=== PATIENT | female | born 1935 | race Caucasian/White ===

== ENCOUNTER 2016-06-28 22:29 | Observation (INO) ==
--- NOTE | 2016-06-28 23:39 | Emergency Department Note ---
Disposition Clinical Impression: Unable to ambulate Fracture of 5th metatarsal Qualifiers: Encounter type: initial encounter Fracture type: closed Fracture alignment: nondisplaced Laterality: right Qualified Code(s): S92.354A - Nondisplaced fracture of fifth metatarsal bone, right foot, initial encounter for closed fracture Disposition: Admitted As Inpatient Condition: Good Referrals: Unassigned,Provider [Non-Partnered Physician] - Forms: ED Satisfaction Letter Time of Disposition: 04:13 Fall HPI - General Chief Complaint: ED Fall Stated Complaint: Fall, R ankle/Shoulder Pain Time Seen by Provider: 06/28/16 23:37 Source: patient, family Nursing Notes Reviewed: Yes Vital Signs Reviewed: Yes - History of Present Illness HPI Narrative: Patient is an 81-year-old female with hx of dementia who presented today due to a fall. Patient is a poor historian due to Alzheimer's. Patient was at home, walking in her garage without lights on. Family states that the garage floor has a divot in it. She stepped in the divot with her right ankle, fell onto her right ankle, right shoulder. She is unsure if she hit her head or cervical spine. She does not recall whether or not she lost consciousness. She is complaining of right shoulder pain, right ankle pain, mild neck pain. Denies any chest pain, shortness breath, nausea, vomiting, fevers, abdominal pain, any other injuries. - Related Data Home Medications Medication Instructions Recorded Confirmed Aripiprazole [Abilify] 5 mg PO DAILY 10/02/15 10/30/15 Aspirin [Lo-Dose Aspirin EC] 81 mg PO DAILY 10/02/15 10/30/15 Atorvastatin Calcium [Lipitor] 80 mg PO DAILY 10/02/15 10/30/15 Clopidogrel [Plavix] 75 mg PO DAILY 10/02/15 10/30/15 Donepezil [Aricept] 10 mg PO HS 10/02/15 10/30/15 Ergocalciferol (VITAMIN D2) 50,000 unit PO QWEEK 10/02/15 10/30/15 [Vitamin D2 (50,000 UNIT)] Ferrous Sulfate [Iron] 325 mg PO DAILY 10/02/15 10/30/15 Lisinopril [Zestril] 2.5 mg PO DAILY 10/02/15 10/30/15 Memantine HCl [Namenda Xr] 28 mg PO DAILY 10/02/15 10/30/15 Metformin [Glucophage] 500 mg PO BIDWM 10/02/15 10/30/15 Metoprolol XL (24 HR) Succ [Toprol 25 mg PO DAILY 10/02/15 10/30/15 XL] Nitroglycerin [Nitrostat] 0.4 mg SL PRN PRN 10/02/15 10/30/15 Omeprazole [PriLOSEC] 20 mg PO DAILY 10/02/15 10/30/15 Sertraline [Zoloft] 150 mg PO DAILY 10/02/15 10/30/15 Allergies Allergy/AdvReac Type Severity Reaction Status Date / Time Sulfa (Sulfonamide Allergy Rash Verified 06/28/16 23:54 Antibiotics) All systems ED: reviewed and negative except as stated. Constitutional: Denies: fever Cardiovascular: Denies: chest pain, palpitations Respiratory: Denies: dyspnea Gastrointestinal: Denies: abdominal pain, nausea, vomiting, diarrhea Musculoskeletal: Reports: neck pain. Denies: back pain Integumentary: Denies: rash Neurological: Denies: headache, weakness, numbness, paresthesias Fall PMH - Past Medical History Medical history: Reports: coronary artery disease, dementia, diabetes, GERD, hyperlipidemia, hypertension, migraine, myocardial infarction, other - Social History Smoking Status: Former smoker Alcohol use: Reports: none Drug use: Reports: none Physical Exam - General Limitations: no limitations General appearance: alert, in no apparent distress - Head Head exam: atraumatic, normocephalic, normal inspection - Eye Eye exam: Present: normal appearance, PERRL, EOMI - ENT ENT exam: normal exam, mucous membranes moist - Neck Neck exam: Present: normal inspection, full ROM, trachea midline, tenderness ( Cervical spine tenderness C4-C6. No paraspinal tenderness. ) - Chest Chest inspection: Present: normal inspection, symmetric chest wall rise - Respiratory Respiratory exam: Present: normal lung sounds bilaterally - Cardiovascular Cardiovascular exam: Present: regular rate, normal rhythm, normal heart sounds - Abdominal Exam Abdominal exam: Present: soft, Non-Tender. Absent: tenderness, distention, guarding, rebound, rigidity - Extremities Exam Extremities exam: Present: other (Edema and tenderness of the lateral right malleolus, tenderness and edema of metatarsals 2 through 5 of the right foot. Patient has tenderness of the right proximal humerus and anterior right shoulder with no palpable deformity.) Course Course Narrative: Vitals within normal limits. Physical exam shows C4-C6 spinous process tenderness. Edema and tenderness of the lateral right malleolus, tenderness and edema of metatarsals 2 through 5 of the right foot. Patient has tenderness of the right proximal humerus and anterior right shoulder with no palpable deformity. Due to patient being a poor historian, it is unclear whether or not she hit her head or loss consciousness. Her head exam is atraumatic. We will obtain CT of the head, CT cervical spine, x-ray of the right humerus and right shoulder, x-ray of the right foot and right ankle. Family was very adamant about the patient receiving a pain shot instead of a pain pill. Patient was given fentanyl 50 mg for pain control. Xrays negative except for:1. Acute fracture through the base of the 5th metacarpal, extending through the metadiaphysis, approximately 1.8 cm from the tuberosity. Patient placed in posterior splint by bob Kwong. Neurovascularly intact after placement. Patient givne additional dilaudid 0.5mg for pain control. Patient unable to ambulate, family and patient wish to be admitted and have ortho see in hospital tomorrow. This was discussed with hospitalist. Patient accepted for admission and they will consult ortho tomorrow for further care. Ankle X-Ray 06/29/16 00:00 IMPRESSION: 1. Acute fracture through the base of the 5th metacarpal, extending through the metadiaphysis, approximately 1.8 cm from the tuberosity. 2. Diffuse bony demineralization. D/ / Nino Pedersen MD / Nino Pedersen MD Interpreting Provider: Nino Pedersen MD Foot X-Ray 06/29/16 00:00 IMPRESSION: 1. Acute fracture of the base of the 5th metatarsal metadiaphysis, approximately 2 cm from the tuberosity D/ / iNno Pedersen MD / Nino Pedersen MD Interpreting Provider: Nino Pedersen MD Humerus X-Ray 06/29/16 00:00 IMPRESSION: 1. Moderate acromioclavicular and mild to moderate glenohumeral degenerative changes. No superimposed acute radiographic finding to account for patient's pain. D/ / Hayden Campoverde MD / Hayden Campoverde MD Interpreting Provider: Hayden Campoverde MD Shoulder X-Ray 06/29/16 00:00 IMPRESSION: 1. Moderate acromioclavicular and mild to moderate glenohumeral degenerative changes. No superimposed acute radiographic finding to account for patient's pain. D/ / Hayden Campoverde MD / Hayden Campoverde MD Interpreting Provider: Hayden Campoverde MD Elbow X-Ray 06/29/16 01:16 IMPRESSION: No acute osseous abnormality. D/ / Nino Pedersen MD / Nino Pedersen MD Interpreting Provider: Nino Pedersen MD Cervical Spine CT 06/29/16 23:55 IMPRESSION: Slightly limited study due to motion degradation. Otherwise no acute fracture or subluxation of the cervical spine. Moderate multilevel cervical spine spondylosis. D/ / Nino Pedersen MD / Nino Pedersen MD Interpreting Provider: Nino Pedersen MD Head CT 06/29/16 23:55 IMPRESSION: No acute intracranial abnormality. D/ / Nino Pedersen MD / Nino Pedersen MD Interpreting Provider: Nino Pedersen MD Vital Signs Temperature 98.1 F 06/28/16 22:31 Pulse Rate 66 06/28/16 22:31 Respiratory Rate 16 06/28/16 22:31 Blood Pressure 167/79 06/28/16 22:31 O2 Sat by Pulse Oximetry 94 06/28/16 22:31 Temperature 98.1 F 06/28/16 22:31 Pulse Rate 59 06/29/16 03:30 Respiratory Rate 20 06/29/16 03:30 Blood Pressure 157/69 06/29/16 03:30 O2 Sat by Pulse Oximetry 95 06/29/16 03:30 Oxygen Delivery Oxygen Delivery Room Air Procedures - Orthopedic Splinting/Casting Injury #1 Side: right Lower Extremity Injury Location: foot Lower Extremity Immobilizer: posterior splint Additional Comments: Placed by [employer]. Neurovascularly intact after placement. Fall - MDM Narrative Medical decision making narrative: Vitals within normal limits. Physical exam shows C4-C6 spinous process tenderness. Edema and tenderness of the lateral right malleolus, tenderness and edema of metatarsals 2 through 5 of the right foot. Patient has tenderness of the right proximal humerus and anterior right shoulder with no palpable deformity. Due to patient being a poor historian, it is unclear whether or not she hit her head or loss consciousness. Her head exam is atraumatic. We will obtain CT of the head, CT cervical spine, x-ray of the right humerus and right shoulder, x-ray of the right foot and right ankle. Family was very adamant about the patient receiving a pain shot instead of a pain pill. Patient was given fentanyl 50 mg for pain control. Xrays negative except for:1. Acute fracture through the base of the 5th metacarpal, extending through the metadiaphysis, approximately 1.8 cm from the tuberosity. Patient placed in posterior splint by tech Elenita. Neurovascularly intact after placement. Patient givne additional dilaudid 0.5mg for pain control. Patient unable to ambulate, family and patient wish to be admitted and have ortho see in hospital tomorrow. This was discussed with hospitalist. Patient accepted for admission and they will consult ortho tomorrow for further care. - Medical Records Medical records reviewed: Yes I reviewed the patient's medical records. - Radiology Data Radiology results reviewed: Yes I reviewed the patient's radiology results. Ankle X-Ray 06/29/16 00:00 IMPRESSION: 1. Acute fracture through the base of the 5th metacarpal, extending through the metadiaphysis, approximately 1.8 cm from the tuberosity. 2. Diffuse bony demineralization. D/ / Nino Pedersen MD / Nino Pedersen MD Interpreting Provider: Nino Pedersen MD Foot X-Ray 06/29/16 00:00 IMPRESSION: 1. Acute fracture of the base of the 5th metatarsal metadiaphysis, approximately 2 cm from the tuberosity D/ / Nino Pedersen MD / Nino Pedersen MD Interpreting Provider: Nino Pedersen MD Humerus X-Ray 06/29/16 00:00 IMPRESSION: 1. Moderate acromioclavicular and mild to moderate glenohumeral degenerative changes. No superimposed acute radiographic finding to account for patient's pain. D/ / Hayden Campoverde MD / Hayden Campoverde MD Interpreting Provider: Hayden Campoverde MD Shoulder X-Ray 06/29/16 00:00 IMPRESSION: 1. Moderate acromioclavicular and mild to moderate glenohumeral degenerative changes. No superimposed acute radiographic finding to account for patient's pain. D/ / Hayden Campoverde MD / Hayden Campoverde MD Interpreting Provider: Hayden Campoverde MD Elbow X-Ray 06/29/16 01:16 IMPRESSION: No acute osseous abnormality. D/ / Nino Pedersen MD / Nion Pedersen MD Interpreting Provider: Nino Pedersen MD Cervical Spine CT 06/29/16 23:55 IMPRESSION: Slightly limited study due to motion degradation. Otherwise no acute fracture or subluxation of the cervical spine. Moderate multilevel cervical spine spondylosis. D/ / Nino Pedersen MD / Nino Pedersen MD Interpreting Provider: Nino Pedersen MD Head CT 06/29/16 23:55 IMPRESSION: No acute intracranial abnormality. D/ / Nino Pedersen MD / Nino Pedersen MD Interpreting Provider: Nino Pedersen MD [email or web address] - [email or web address] Situation: Demographics, MOA Background: Presenting Complaint, Relevant PMH, Meds, & Allergies Assessment: Vital Signs, Course and respsone to treatment, Exam Concerns, Patient/Family Expectation, Pertinant Lab Results, Outstanding Labs Recommendation: Barrier(s) to disposition, Recommendation based on pending studies, treatments, or consults [email or web address] Report Given to: Dr. Jim Rivera Repor Time: 04:14 Attestation Statement - Attestation Attestation: I examined this patient and my medical decision-making was reviewed with the TEXTILE B[employer] SEWER/PA/Advanced Practice Nurse/Resident Physician. I agree with the documented findings, disposition and treatment plan as described except to the extent set forth below. Patient to ED after a fall. Patient had an unwitnessed fall in the garage. Unsure if she hit her head. She is complaining of right shoulder and right ankle pain. Neck pain as well. On examination she has a moderate amount of swelling to the right ankle with tenderness over the lateral malleolus. Also tenderness over the lateral portion of the foot. Tenderness over the spine inferiorly. Tenderness in the right shoulder with decreased range of motion. Plan. Pain control and imaging. We will CT her head as well. She will with metatarsal fracture. Unable to ambulate. We will admit for orthopedics consult and rehabilitation placement if unable to go home.
[2016-06-28] MEDS ORDERED: *HR* FentaNYL (PF) 100 MCG/2 ML VIAL IVP ONE (23:56)
[2016-06-29] MEDS ORDERED: *HR* HYDROmorphone (PF) 1 MG/ML SYRINGE IVP ONE (03:15)
[2016-06-29] MEDS ORDERED: *HR* Morphine 2 MG/ML SYRINGE IVP PRN (03:59)
[2016-06-29] MEDS ORDERED: Ibuprofen 400 MG TABLET PO PRN (03:59)
[2016-06-29] MEDS ORDERED: Ondansetron 4 MG/2 ML VIAL IVP PRN (03:59)
[2016-06-29] MEDS ORDERED: Acetaminophen 325 MG TABLET PO PRN (03:59)
[2016-06-29] MEDS ORDERED: Naloxone 0.4 MG/ML INJ IVP PRN (03:59)
[2016-06-29] MEDS ORDERED: 0.9 % Sodium Chloride 1,000 ML IVC SCH (04:00)
--- NOTE | 2016-06-29 04:09 | Internal Med History&Physical ---
Date of Encounter: 06/29/16 Time of Encounter: 04:06 Assessment and Plan (1) Nondisplaced fracture of fifth right metatarsal bone Current visit: Yes Status: Acute maintain splint until evaluation by orthopedic surgery PT OT eval morphine for pain admitted for observation Omeprazole for Gi prophylaxis and sub q heparin for dvt prophylaxis. Full code. TIme spent: 40 min . High risk of falling Qualifiers: Encounter type: initial encounter Fracture type: closed Qualified Code(s) : S92.354A - Nondisplaced fracture of fifth metatarsal bone, right foot, initial encounter for closed fracture (2) Fall Current visit: Yes Status: Acute check orthostatics fall precautions check UA CBC and BMP Qualifiers: Encounter type: initial encounter Qualified Code(s): W19.XXXA - Unspecified fall, initial encounter (3) DM2 (diabetes mellitus, type 2) Current visit: Yes Status: Acute ISS Qualifiers: Diabetes mellitus complication status: without complication Diabetes mellitus penitentiary insulin use: without penitentiary use Qualified Code(s): E11.9 - Type 2 diabetes mellitus without complications (4) Accelerated hypertension Current visit: Yes Status: Acute may use hydralazine PRN (5) Confusion Current visit: Yes Status: Acute consider possible acute metabolic encephalopathy in the setting of underlying dementia check UA (6) GERD (gastroesophageal reflux disease) Current visit: Yes Status: Acute omeprazole Qualifiers: Esophagitis presence: without esophagitis Qualified Code(s): K21.9 - Gastro -esophageal reflux disease without esophagitis (7) Dementia Current visit: No Status: Chronic Qualifiers: Dementia type: Alzheimer's disease Alzheimer's disease onset: unspecified onset Dementia behavioral disturbance: without behavioral disturbance Qualified Code(s): G30.9 - Alzheimer's disease, unspecified; F02.80 - Dementia in other diseases classified elsewhere without behavioral disturbance Internal Medicine - H&P: HPI Chief complaint: fall Admitted From: Emergency Dept History of present illness: Ms. Santana is a 81 year old female with a past medical history of Alzheimer' s dementia, diabetes type 2 not insulin-dependent, hyperlipidemia, CAD status post stents, came to the hospital after sustaining a fall. She has. Apparently she was at home and walked into the garage without any lights, tripped and fell on her right side. Did not remember hitting her head. CT scan of the head and neck did not show any fractures. X-ray of the right foot showed base fifth metatarsal mid to 2 cm nondisplaced fracture, patient is having excruciating pain and is not able to stand up and bear any weight. Blood pressure is 164/69. Her daughters say that she has been more confused for the past week. No labs have been drawn by the ER, no UA collected. ER physician Dr Li requested admission. Past Med Surg Social Fam HX - Past Medical History Medical history: coronary artery disease (hx of stent), dementia, diabetes (Not insulin-dependent), GERD, hyperlipidemia, hypertension, migraine, myocardial infarction, other (Alzheimer's dementia, osteoarthritis, diastolic CHF, migraines, depression) - Past Surgical History Surgical History: other (Cardiac catheterization, hysterectomy. Prior ejection fraction of 65% with mild diastolic dysfunction) - Social History Smoking Status: Former smoker Smokeless Tobacco Status: No Alcohol use: none Drug use: none - Additional Family History Additional family history: Father with Alzheimer's, sister with diabetes and mother with MA and diabetes Internal Medicine - H&P: Meds Aripiprazole [Abilify] 5 mg PO DAILY 10/02/15 [History] Aspirin [Lo-Dose Aspirin EC] 81 mg PO DAILY 10/02/15 [History] Atorvastatin Calcium [Lipitor] 80 mg PO DAILY 10/02/15 [History] Clopidogrel [Plavix] 75 mg PO DAILY 10/02/15 [History] Donepezil [Aricept] 10 mg PO HS 10/02/15 [History] Ergocalciferol (VITAMIN D2) [Vitamin D2 (50,000 UNIT)] 50,000 unit PO QWEEK [History] Ferrous Sulfate [Iron] 325 mg PO DAILY 10/02/15 [History] Lisinopril [Zestril] 2.5 mg PO DAILY 10/02/15 [History] Memantine HCl [Namenda Xr] 28 mg PO DAILY 10/02/15 [History] Metformin [Glucophage] 500 mg PO BIDWM 10/02/15 [History] Metoprolol XL (24 HR) Succ [Toprol XL] 25 mg PO DAILY 10/02/15 [History] Nitroglycerin [Nitrostat] 0.4 mg SL PRN PRN 10/02/15 [History] Omeprazole [PriLOSEC] 20 mg PO DAILY 10/02/15 [History] Sertraline [Zoloft] 150 mg PO DAILY 10/02/15 [History] Allergies Sulfa (Sulfonamide Antibiotics) Allergy (Verified 06/28/16 23:54) Rash All Systems PM: A 10-system review of systems was performed and is negative for pertinent findings except as documented above in the HPI. Review of systems: The patient is a very poor historian, unable to complete ROS. Denies CP or SOB , no dizziness, no dysuria. Information provided by the patient is probably not reliable - Constitutional Vitals: Temp Pulse Resp BP Pulse Ox 98.1 F 59 20 157/69 95 06/28/16 22:31 06/29/16 03:30 06/29/16 03:30 06/29/16 03:30 06/29/16 03:30 General appearance: Present: A&O X 1 - Head Head exam: Present: atraumatic, normocephalic - Eye Eye exam: Present: PERRL, conjuntiva pink, sclera anicteric Pupils: Present: PERRL - Neck Neck exam general surgery: Present: supple, trachea midline. Absent: lymphadenopathy - Respiratory Respiratory exam: Present: decreased breath sounds, CTAB. Absent: accessory muscle use, rales, rhonchi, wheezes - Cardiovascular Cardiovascular exam: Present: RRR, +S1, +S2. Absent: diastolic murmur, gallop, rubs, systolic murmur - GI/Abdominal GI/Abdominal exam: Present: normal bowel sounds, soft, no peritoneal signs. Absent: distended, tenderness - Extremities Exam Extremities exam: Present: warm, radial pulses palpable and symetrical. Absent : calf tenderness, cyanotic, pedal edema - Neurological Exam Neurological exam: Present: CN II-XII intact, no focal deficits. Absent: oriented X3, pronater drift, facial droop, speech deficit - Skin Skin exam: Present: dry, intact Additional comments: splint placed on right foot, no hematoma, moderate ankle swelling , no erythema small abrassion on left elbow Internal Med - H&P Results - Impressions ITS Impressions Ankle X-Ray 06/29/16 00:00 IMPRESSION: 1. Acute fracture through the base of the 5th metacarpal, extending through the metadiaphysis, approximately 1.8 cm from the tuberosity. 2. Diffuse bony demineralization. D/ / Nino Pedersen MD / Nino Pedersen MD Interpreting Provider: Nino Pedersen MD Foot X-Ray 06/29/16 00:00 IMPRESSION: 1. Acute fracture of the base of the 5th metatarsal metadiaphysis, approximately 2 cm from the tuberosity D/ / Nino Pedersen MD / Nino Pedersen MD Interpreting Provider: Nino Pedersen MD Humerus X-Ray 06/29/16 00:00 IMPRESSION: 1. Moderate acromioclavicular and mild to moderate glenohumeral degenerative changes. No superimposed acute radiographic finding to account for patient's pain. D/ / Hayden Campoverde MD / Hayden Campoverde MD Interpreting Provider: Hayden Campoverde MD Shoulder X-Ray 06/29/16 00:00 IMPRESSION: 1. Moderate acromioclavicular and mild to moderate glenohumeral degenerative changes. No superimposed acute radiographic finding to account for patient's pain. D/ / Hayden Campoverde MD / Hayden Campoverde MD Interpreting Provider: Hayden Campoverde MD Elbow X-Ray 06/29/16 01:16 IMPRESSION: No acute osseous abnormality. D/ / Nino Pedersen MD / Nino Pedersen MD Interpreting Provider: Nino Pedersen MD Cervical Spine CT 06/29/16 23:55 IMPRESSION: Slightly limited study due to motion degradation. Otherwise no acute fracture or subluxation of the cervical spine. Moderate multilevel cervical spine spondylosis. D/ / Nino Pedersen MD / Nino Pedersen MD Interpreting Provider: Nino Pedersen MD Head CT 06/29/16 23:55 IMPRESSION: No acute intracranial abnormality. D/ / Nino Pedersen MD / Nino Pedersen MD Interpreting Provider: Nino Pedersen MD
[2016-06-29] MEDS: *HR* Heparin 5,000 UNIT/ML VIAL SQ SCH ×3 (05:54→21:29)
[2016-06-29 06:39] LABS: BUN/Creatinine Ratio 25 (6-26); Basophils % 0.3 %; Blood Urea Nitrogen 19 mg/dL (7-20); Calcium 8.8 mg/dL (8.6-10.8); Carbon Dioxide 23 mEq/L (19-29); Chloride 107 mEq/L (98-109); Eosinophils # 0.3 K/mcL (0.0-0.6); Glucose 204 mg/dL (70-99); Hematocrit 34.2 % (35.3-44.9); Hemoglobin 10.9 g/dL (11.5-15.4); Immature Granulocytes % 0.3 % (0-4); Lymphocytes # 0.9 K/mcL (0.6-4.6); Lymphocytes % 8.3 %; Mean Corpuscular HGB Conc 31.9 g/dL (31.6-35.5); Mean Corpuscular Hemoglobin 28.2 pg (28.0-33.3); Mean Corpuscular Volume 88.4 fL (83.0-100.0); Mean Platelet Volume 10.1 fL (9.4-12.4); Monocytes # 1.1 K/mcL (0.0-1.3); Neutrophils # 8.8 K/mcL (1.6-8.9); Osmolality,Calculated 300 (280-300); Platelet Count 199 K/mcL (140-400); Potassium 3.9 mEq/L (3.5-4.5); Red Blood Count 3.87 M/mcL (3.82-4.97); Red Cell Distribution Width 14.8 % (11.5-14.5); Segmented Neutrophils % 78.1 %; Sodium 141 mEq/L (136-145); eGFR For African Americans > 60 (> 60); eGFR For Non-African Americans > 60 (> 60)
[2016-06-29] MEDS ORDERED: Famotidine 20 MG TABLET PO SCH (07:30)
[2016-06-29] MEDS ORDERED: D5% in Water 1,000 ML IVC PRN (08:25)
[2016-06-29] MEDS ORDERED: Dextrose Gel 15 GM PO PRN ×2 (08:25)
[2016-06-29] MEDS ORDERED: *HR* Dextrose 50 % in Water (Syg) 50 ML SYRINGE IVP PRN (08:25)
[2016-06-29 09:25] LABS: Bilirubin,Urine Negative (Negative); Clarity,Urine Slightly Hazy (Clear); Color,Urine Yellow (Yellow); Glucose,Urine (UA) Normal (Normal)
[2016-06-29 09:26] LABS: Blood,Urine Negative (Negative); Ketones,Urine Negative (Negative); Leukocyte Esterase,Urine Moderate (Negative); Nitrite,Urine Negative (Negative); PH,Urine 6.5 pH Units (5.0-8.0); Protein,Urine Negative (Neg-Trace); Specific Gravity,Urine 1.022 (1.010-1.025); Urobilinogen,Urine Normal (Normal)
[2016-06-29 09:31] LABS: RBC,Urine 0-3 per hpf (0-3)
[2016-06-29 09:32] LABS: Squamous Epithelial Cell,Urine Few per lpf (None-Few); Uric Acid Crystals,Urine Present; Yeast,Urine Few per hpf (None Seen)
[2016-06-29 09:33] LABS: Bacteria,Urine Few per hpf (None-Few)
[2016-06-29] MEDS: ARIPiprazole 5 MG TABLET PO SCH (10:14)
[2016-06-29] MEDS: Aspirin Enteric Coated 81 MG Tablet PO SCH (10:14)
[2016-06-29] MEDS: Metoprolol XL (24 HR) Succ 25 MG TAB.ER.24H PO SCH (10:16)
[2016-06-29] MEDS: NAMENDA XR 28 MG PO SCH (10:19)
[2016-06-29] MEDS: Insulin LISPRO 300 UNITS/3 ML VIAL SQ SCH ×2 (12:12→17:32)
--- NOTE | 2016-06-29 13:03 | Podiatry Consult Note ---
Date of Encounter: 06/29/16 Time of Encounter: 13:01 Assessment and Plan (1) Nondisplaced fracture of fifth right metatarsal bone Current visit: Yes Status: Acute Assessment: #1 nondisplaced fracture fifth metatarsal right foot #2 comorbidities as outlined in history and recent positive urine cultures Plan: #1 remove splint of right foot to avoid skin compromise. #2 we will use adequate padding Marlon wrap's and flat Darco shoe #3 remove compression dressing at night and use heel protector boots and offload contralateral heel with pillow to avoid any pressure ulcers. #4 patient may bear weight with assistance in flat fracture shoe and compression dressing with assistance. #5 patient may be up in chair with leg elevated and may have bathroom privileges with assistance. #6 will follow up in podiatry clinic in 3 weeks post discharge Qualifiers: Encounter type: initial encounter Fracture type: closed Qualified Code(s) : S92.354A - Nondisplaced fracture of fifth metatarsal bone, right foot, initial encounter for closed fracture History of Present Illness Chief complaint: Fracture #5 metatarsal right HPI: Ms. Santana is a 81 year old female who fell at home within the last 24 hours. She was admitted through ED. Patient with positive urine culture. Subsequent fracture of #5 metatarsal. Review of x-rays revealed Wilkins fracture good alignment good position. Moderate edema noted. No other fracture or dislocation noted other lower extremities. Past Med Surg Social Fam HX - Past Medical History Medical history: coronary artery disease, dementia, diabetes, GERD, hyperlipidemia, hypertension, migraine, myocardial infarction, other - Past Surgical History Surgical History: other - Social History Smoking Status: Former smoker Smokeless Tobacco Status: No Alcohol use: none Drug use: none Medications and Allergies Aripiprazole [Abilify] 5 mg PO DAILY 10/02/15 [History] Aspirin [Lo-Dose Aspirin EC] 81 mg PO DAILY 10/02/15 [History] Atorvastatin Calcium [Lipitor] 80 mg PO DAILY 10/02/15 [History] Donepezil [Aricept] 10 mg PO HS 10/02/15 [History] Ergocalciferol (VITAMIN D2) [Vitamin D2 (50,000 UNIT)] 50,000 unit PO QWEEK [History] Ferrous Sulfate [Iron] 325 mg PO DAILY 10/02/15 [History] Lisinopril [Zestril] 5 mg PO DAILY 10/02/15 [History] Memantine HCl [Namenda Xr] 28 mg PO DAILY 10/02/15 [History] Metformin [Glucophage] 500 mg PO BIDWM 10/02/15 [History] Metoprolol XL (24 HR) Succ [Toprol XL] 25 mg PO DAILY 10/02/15 [History] Nitroglycerin [Nitrostat] 0.4 mg SL PRN PRN 10/02/15 [History] Omeprazole [PriLOSEC] 20 mg PO DAILY 10/02/15 [History] Sertraline [Zoloft] 150 mg PO DAILY 10/02/15 [History] Ascorbate Calcium [Vitamin C] 500 mg PO DAILY 06/29/16 [History] Isosorbide MONOnitrate (24 HR) [Imdur] 30 mg PO DAILY 06/29/16 [History] Allergies Sulfa (Sulfonamide Antibiotics) Allergy (Verified 06/28/16 23:54) Rash All Systems Reviewed: A 10-system review of systems was performed and is negative for pertinent findings except as documented above in the HPI. Physical Exam - Constitutional Vitals: Temp Pulse Resp BP Pulse Ox 98.8 F 64 18 116/71 94 06/29/16 11:11 06/29/16 11:11 06/29/16 11:11 06/29/16 11:11 06/29/16 11:11 General appearance: average body habitus, cooperative, no acute distress - Extremities Exam Extremities exam: Present: pedal edema, tenderness (On palpation of the right foot fifth metatarsal) - Expanded Lower Extremities Exam Foot/Toe exam: Present: tenderness at base of 5th metatarsal (Pain on palpation of the fifth metatarsal right foot) Neuro vascular tendon exam: Present: no vascular compromise Gait: Present: not tested/not observed - Neurological Exam Neurological exam: Present: oriented X3 (Intact epicritic sensation. Decreased proprioception. DTRs Achilles patellar equal and symmetrical. No spasticity no rigidity no flaccidity. Guarding of the right foot secondary to pain.) - Skin Skin exam: Present: normal color (Ecchymosis of the right foot consistent with fracture of the fifth metatarsal) - Vascular Capillary Refill: less than 3 seconds Results - Labs Result Diagrams: 06/29/16 05:27 06/29/16 05:27 Labs: Abnormal lab results WBC 11.3 K/mcL (4.3-11.1) H 06/29/16 05:27 Hgb 10.9 g/dL (11.5-15.4) L 06/29/16 05:27 Hct 34.2 % (35.3-44.9) L 06/29/16 05:27 RDW 14.8 % (11.5-14.5) H 06/29/16 05:27 Glucose 204 mg/dL (70-99) H 06/29/16 05:27 POC Glucose 183 (58-89) H 06/29/16 07:41 Ur Leukocyte Esterase Moderate (Negative) H 06/29/16 09:00 Urine Microscopic WBC 3-5 per hpf (0-3) H 06/29/16 09:00 Urine Yeast Few per hpf (None Seen) H 06/29/16 09:00 Ur Culture Indicated? YES (NO) A 06/29/16 09:00 H & H 06/29/16 Range/Units 05:27 Hgb 10.9 L (11.5-15.4) g/dL Hct 34.2 L (35.3-44.9) % All other labs normal. - Diagnostic results Ankle/Foot x-ray: image reviewed Consult Discharge Plan - Plan Referrals: Yovanny Parker MD [Primary Care Provider] -
[2016-06-29] MEDS ORDERED: Insulin LISPRO 300 UNITS/3 ML VIAL SQ SCH (21:00)
[2016-06-30] MEDS: *HR* Heparin 5,000 UNIT/ML VIAL SQ SCH (05:39)
[2016-06-30 06:08] LABS: Basophils % 0.2 %; Eosinophils # 0.2 K/mcL (0.0-0.6); Eosinophils % 3.5 %; Hematocrit 32.5 % (35.3-44.9); Hemoglobin 10.6 g/dL (11.5-15.4); Immature Granulocytes % 0.2 % (0-4); Lymphocytes # 0.8 K/mcL (0.6-4.6); Lymphocytes % 12.5 %; Mean Corpuscular HGB Conc 32.6 g/dL (31.6-35.5); Mean Corpuscular Hemoglobin 28.3 pg (28.0-33.3); Mean Corpuscular Volume 86.7 fL (83.0-100.0); Monocytes # 0.9 K/mcL (0.0-1.3); Monocytes % 13.4 %; Neutrophils # 4.7 K/mcL (1.6-8.9); Platelet Count 176 K/mcL (140-400); Red Blood Count 3.75 M/mcL (3.82-4.97); Red Cell Distribution Width 14.7 % (11.5-14.5); Segmented Neutrophils % 70.2 %
[2016-06-30 06:16] LABS: BUN/Creatinine Ratio 23 (6-26); Blood Urea Nitrogen 15 mg/dL (7-20); Calcium 8.6 mg/dL (8.6-10.8); Carbon Dioxide 23 mEq/L (19-29); Chloride 109 mEq/L (98-109); Glucose 141 mg/dL (70-99); Magnesium 1.8 mg/dL (1.6-2.6); Osmolality,Calculated 295 (280-300); Potassium 3.8 mEq/L (3.5-4.5); Sodium 141 mEq/L (136-145); eGFR For African Americans > 60 (> 60); eGFR For Non-African Americans > 60 (> 60)
[2016-06-30 07:28] VITALS: BP 120/70
[2016-06-30] MEDS: ARIPiprazole 5 MG TABLET PO SCH (08:20)
[2016-06-30] MEDS: Metoprolol XL (24 HR) Succ 25 MG TAB.ER.24H PO SCH (08:21)
[2016-06-30] MEDS: Insulin LISPRO 300 UNITS/3 ML VIAL SQ SCH (08:22)
[2016-06-30] MEDS: Aspirin Enteric Coated 81 MG Tablet PO SCH (08:22)
[2016-06-30] MEDS: NAMENDA XR 28 MG PO SCH (08:23)
[2016-06-30] MEDS ORDERED: Famotidine 20 MG TABLET PO SCH (09:00)
--- NOTE | 2016-06-30 09:03 | Discharge Summary ---
Date of Encounter: 06/30/16 Time of Encounter: 08:30 - Discharge Diagnosis (1) Fall Priority: Primary Status: Acute Qualifiers: Encounter type: initial encounter Qualified Code(s): W19.XXXA - Unspecified fall, initial encounter (2) Nondisplaced fracture of fifth right metatarsal bone Priority: Primary Status: Acute Qualifiers: Encounter type: initial encounter Fracture type: closed Qualified Code(s) : S92.354A - Nondisplaced fracture of fifth metatarsal bone, right foot, initial encounter for closed fracture (3) Accelerated hypertension Priority: Primary Status: Resolved (4) Dementia Priority: Secondary Status: Chronic Qualifiers: Dementia type: Alzheimer's disease Alzheimer's disease onset: unspecified onset Dementia behavioral disturbance: without behavioral disturbance Qualified Code(s): G30.9 - Alzheimer's disease, unspecified; F02.80 - Dementia in other diseases classified elsewhere without behavioral disturbance (5) DM2 (diabetes mellitus, type 2) Priority: Secondary Status: Chronic Qualifiers: Diabetes mellitus complication status: without complication Diabetes mellitus long-term insulin use: without long-term use Qualified Code(s): E11.9 - Type 2 diabetes mellitus without complications - Discharge Medications Prescriptions: Ibuprofen 400 mg PO Q6HR PRN #14 tablet PRN Reason: moderate to severe pain Home Medications: Aripiprazole [Abilify] 5 mg PO DAILY 10/02/15 [History] Aspirin [Lo-Dose Aspirin EC] 81 mg PO DAILY 10/02/15 [History] Atorvastatin Calcium [Lipitor] 80 mg PO DAILY 10/02/15 [History] Donepezil [Aricept] 10 mg PO HS 10/02/15 [History] Ergocalciferol (VITAMIN D2) [Vitamin D2 (50,000 UNIT)] 50,000 unit PO QWEEK [History] Ferrous Sulfate [Iron] 325 mg PO DAILY 10/02/15 [History] Memantine HCl [Namenda Xr] 28 mg PO DAILY 10/02/15 [History] Metformin [Glucophage] 500 mg PO BIDWM 10/02/15 [History] Metoprolol XL (24 HR) Succ [Toprol Xl] 25 mg PO DAILY 10/02/15 [History] Nitroglycerin [Nitrostat] 0.4 mg SL PRN PRN 10/02/15 [History] Omeprazole [PriLOSEC] 20 mg PO DAILY 10/02/15 [History] Sertraline [Zoloft] 150 mg PO DAILY 10/02/15 [History] Ascorbate Calcium [Vitamin C] 500 mg PO DAILY 06/29/16 [History] Clopidogrel [Plavix] 75 mg PO DAILY tablet 06/30/16 [Rx] Ibuprofen 400 mg PO Q6HR PRN #14 tablet 06/30/16 [Rx] Ibuprofen [Motrin] 400 mg PO Q6HR PRN #10 tablet 06/30/16 [Rx] Isosorbide MONOnitrate (24 HR) [Imdur] 15 mg PO DAILY #0 06/30/16 [Rx] Lisinopril [Zestril] 2.5 mg PO DAILY #0 06/30/16 [Rx] Allergies/Adverse Reactions: Allergies Sulfa (Sulfonamide Antibiotics) Allergy (Verified 06/28/16 23:54) Rash Date of admission: 06/29/16 04:19 Primary care physician: Yovanny Parker MD Consults: 06/29/16 05:19 Consult to Apparel Merchandiser [CONS] Routine Reason for SW Consult: age, [facility], future rehab 06/29/16 07:41 Consult to Podiatry [CONS] Routine Consulting Provider: Pod[facility] Reason for Consult: 5th toe MTP fracture Call Completed: Yes - Patient Status Disposition: Home, Self-Care Condition: Good Functional capacity at discharge: uses cane/walker Overall status at discharge: patient is progressing back to baseline - Discharge Instructions Follow Up With: Yovanny Parker MD [Primary Care Provider] - Additional Instructions: PLEASE FOLLOW UP IN THE PODIATRY CLINIC WITH DR VU IN 3 WEEKS. RIGHT FOOT CARE: - Marlon wrap's and flat Darco shoe. - remove compression dressing at night and use heel protector boots and offload contralateral heel with pillow to avoid any pressure ulcers - patient may bear weight with assistance in flat fracture shoe and compression dressing with assistance - patient may be up in chair with leg elevated and may have bathroom privileges with assistance - Diet and Activity Activity: other (AMBULATE WITH ASSISTANCE) Diet: diabetic diet, low fat, low cholesterol Interval History: Her daughter reports patient removed the bigger boot overnight but she was brought a smaller boot and she kept it. Hospital course: Ms. Santana is a 81 year old female with past medical history of ascites noted dementia, diabetes type 2, hyperlipidemia and CAD who presented after a mechanical fall at home. CT scan of the head and neck showed no acute process. X-ray of the right foot showed base fifth metatarsal mid to 2 cm nondisplaced fracture. In our ED, her right foot was placed in a splint. Dr Vu from Podiatry service was consulted. Patient's right foot was wrapped with MARLON wraps and placed in flat Darco shoe. PLAN: Follow-up in Dr. Vu's office in 3 weeks. Remove compression dressing at night and use heel protector boots and offload contralateral heel with pillow to avoid any pressure ulcers - patient may bear weight with assistance in flat fracture shoe and compression dressing with assistance - patient may be up in chair with leg elevated and may have bathroom privileges with assistance - Time Spent with Patient Total time spent providing and/or coordinating discharge services: - Constitutional Vitals: Temp Pulse Resp BP Pulse Ox 98.5 F 65 18 120/70 93 06/30/16 07:20 06/30/16 07:20 06/30/16 07:20 06/30/16 07:20 06/30/16 07:20 General appearance: Present: cooperative, A&O X 1, pleasant, no acute distress - Neck Neck exam general surgery: Absent: lymphadenopathy - Respiratory Respiratory exam: Present: CTAB - Cardiovascular Cardiovascular exam: Present: RRR - GI/Abdominal GI/Abdominal exam: Present: normal bowel sounds, soft. Absent: distended, tenderness - Extremities Exam Extremities exam: Present: pedal edema (Right foot in a boot) - Back Exam Back exam: Absent: CVA tenderness (L), CVA tenderness (R) - Neurological Exam Neurological exam: Present: alert, no focal deficits, strengths equal and symetr throughout. Absent: facial droop, speech deficit
== END 2016-06-30 10:20 | disposition home or self-care (01) ==
LOC: EMEROO 22:29 → 3ANU 22:29
PROVIDERS: ADMIT Internal Medicine; ATTEND Internal Medicine

== ENCOUNTER 2017-06-29 15:54 | Inpatient (IN) ==
--- NOTE | 2017-06-29 16:49 | Emergency Department Note ---
Disposition Clinical Impression: Anemia Disposition: Admitted As Inpatient Condition: Fair SOB HPI - General Chief Complaint: ED Shortness of Breath/Dyspnea Stated Complaint: "low hemoglobin 7.6" DIAN Time Seen by Provider: 06/29/17 16:05 Source: patient, family Mode of arrival: private vehicle Limitations: age Nursing Notes Reviewed: Yes Vital Signs Reviewed: Yes - History of Present Illness Pt Subjective Complaint: shortness of breath Onset (ago): month(s) Context: recent illness (Hx of Iron-deficiency anemia) Severity: moderate Consistency/Duration: constant Improves with: rest Worsens with: exertion, movement Known history of: congestive heart failure, other (Outpatient lab 7.6 on . Hypertension, DM, Hypercholerestemia, History of CAD on aspirin, [place]) Associated symptoms: Reports: denies other symptoms. Denies: chest pain, fever , wheezing, syncope Treatment prior to arrival: none Cough present: No Cough Description: None Sputum production: No Sputum Amount: None - Related Data Comment: CBC 10/03/15 - microcytic anemia, Hgb 10.7. Home oxygen amount: none Home Medications Medication Instructions Recorded Confirmed Aripiprazole [Abilify] 5 mg PO DAILY 10/02/15 06/29/16 Aspirin [Lo-Dose Aspirin EC] 81 mg PO DAILY 10/02/15 06/29/16 Atorvastatin Calcium [Lipitor] 80 mg PO DAILY 10/02/15 06/29/16 Donepezil [Aricept] 10 mg PO HS 10/02/15 06/29/16 Ergocalciferol (VITAMIN D2) 50,000 unit PO QWEEK 10/02/15 06/29/16 [Vitamin D2 (50,000 UNIT)] Ferrous Sulfate [Iron] 325 mg PO DAILY 10/02/15 06/29/16 Memantine HCl [Namenda Xr] 28 mg PO DAILY 10/02/15 06/29/16 Metoprolol XL (24 HR) Succ [Toprol 25 mg PO DAILY 10/02/15 06/29/16 Xl] Nitroglycerin [Nitrostat] 0.4 mg SL PRN PRN 10/02/15 06/29/16 Omeprazole [PriLOSEC] 20 mg PO DAILY 10/02/15 06/29/16 Sertraline [Zoloft] 150 mg PO DAILY 10/02/15 06/29/16 metFORMIN [Glucophage] 500 mg PO BIDWM 10/02/15 06/29/16 Ascorbate Calcium [Vitamin C] 500 mg PO DAILY 06/29/16 06/29/16 Previous Rx's Medication Instructions Recorded Clopidogrel [Plavix] 75 mg PO DAILY tablet 06/30/16 Ibuprofen 400 mg PO Q6HR PRN #14 tablet 06/30/16 Ibuprofen [Motrin] 400 mg PO Q6HR PRN #10 tablet 06/30/16 Isosorbide MONOnitrate (24 HR) 15 mg PO DAILY #0 06/30/16 [Imdur] Lisinopril [Zestril] 2.5 mg PO DAILY #0 06/30/16 Amoxicillin 875 mg PO BID #20 tablet 07/07/16 Doxycycline 100 mg PO BID #20 capsule 07/07/16 Allergies Allergy/AdvReac Type Severity Reaction Status Date / Time Sulfa (Sulfonamide Allergy Rash Verified 06/28/16 23:54 Antibiotics) Review of Systems: ROS obtained by help of family. Constitutional: Denies: fever ENT ED: Reports: throat pain (intermittent ), other. Denies: dysphagia Cardiovascular: Denies: chest pain Respiratory: Reports: dyspnea. Denies: cough, hemoptysis Gastrointestinal: Reports: diarrhea (intermittent ), melena. Denies: abdominal pain, nausea, vomiting, hematochezia Genitourinary: Denies: urgency, dysuria, frequency Integumentary: Denies: rash Endocrine: Reports: fatigue Hematological/Lymphatic: Reports: easy bruising. Denies: easy bleeding Past Medical History - Past Medical History Source: obtained from family Medical history: Reports: CHF, dementia, hyperlipidemia, hypertension, myocardial infarction, other Surgical history: Reports: other Psychiatric history: Reports: anxiety, depression - Social History Smoking Status: Never smoker Smokeless Tobacco Status: No Alcohol use: Reports: none Drug use: Reports: none Physical Exam - General Limitations: age General appearance: in no apparent distress - Head Head exam: atraumatic, normocephalic - Chest Chest inspection: Present: symmetric chest wall rise. Absent: tenderness - Respiratory Respiratory exam: Present: other (bilateral crackles ) - Cardiovascular Cardiovascular exam: Present: regular rate, normal rhythm, +S1, +S2, other (No hepatojugular reflex.) - Abdominal Exam Abdominal exam: Present: soft, Non-Tender. Absent: distention, guarding, rebound - Rectal Exam Rectal exam: Present: normal rectal tone, heme (+) stool - Extremities Exam Extremities exam: Present: pedal edema (+1, non-pitting), other (No abrasions. Varicose veins. ) - Neurological Exam Neurological exam: Present: alert, other (oriented to person and place ) - Psychiatric Psychiatric exam: Present: normal mood Course - Reevaluation(s) Reevaluation #1: 17:32 - Dr. Soares at bedside evaluation pt. Reevaluation #2: 18:15 Rectal exam performed with vending machine attendant Ms. Cheema and daughter at bedside. Pt had no complaints. Hemeoccult developed, result reviewed with Dr. Soares, with resultant positive exam. Family notified of positive result. Patient and family agree and amenable to consideration for admission to hospital. Hospitalist subsequently paged. Reevaluation #3: 19:00 Pt appears comfortable. Hospitalist attending a resuscitation on inpatient side. Notified, family we are awaiting consultation. - Consultations Consultation #1: 20:20 - Hospitalist discussion - Dr. Puri at bedside. Agrees to admission. Vital Signs Temperature 98.3 F 06/29/17 16:03 Pulse Rate 69 06/29/17 16:03 Respiratory Rate 16 06/29/17 16:03 Blood Pressure 133/57 06/29/17 16:03 O2 Sat by Pulse Oximetry 100 06/29/17 16:03 Temperature 98.3 F 06/29/17 18:45 Pulse Rate 71 06/29/17 18:45 Respiratory Rate 16 06/29/17 18:45 Blood Pressure 128/68 06/29/17 18:45 O2 Sat by Pulse Oximetry 100 06/29/17 16:03 Oxygen Delivery Oxygen Delivery Room Air Shortness of Breath/Dyspnea - MDM Narrative Medical decision making narrative: 82-year-old female with a past medical history of dementia, CAD sp PCI proximal LAD 2014 with history of ischemic CM and normalized EF, CHF w/ EF 65% (2017), HTN, HLD, and iron-deficiency anemia in 2016, seen by Dr. Parker as an outpatient on 06/27/2017. Outpatient lab results with hemoglobin of 7.6. Was advised to present to the emergency department in the event of worsening symptomatic anemia given lab findings. Pt presented to the ED with family with complaint of SOB and fatigue. On exam, hemodynamically stable, positive hemeoccult, with rales b/l. CBC, renal function testing, T&S. CBC demonstrating hemoglobin of 7.5 with low MCV. 1 U pRBC ordered. CXR, ECG and troponin ordered. Iron panel pending. Pt and family amenable for consideration of admission at this time. - Medical Records Medical records reviewed: Yes I reviewed the patient's medical records. - Lab Data Lab results reviewed: Yes I reviewed the patient's lab results. Result diagrams: 06/29/17 16:42 06/29/17 16:42 Lab Results 06/29/17 06/29/17 06/29/17 Range/Units 16:42 16:42 16:42 WBC 9.5 (4.3-11.1) K/mcL RBC 3.75 L (3.82-4.97) M/mcL Hgb 7.5 L (11.5-15.4) g/dL Hct 26.2 L (35.3-44.9) % MCV 69.9 L (83.0-100.0) fL MCH 20.0 L (28.0-33.3) pg MCHC 28.6 L (31.6-35.5) g/dL RDW 16.1 H (11.5-14.5) % Plt Count 308 (140-400) K/mcL MPV 9.5 (9.4-12.4) fL Immature Gran % 0.3 (0-4) % Seg Neutrophils % 75.5 % Lymphocytes % 9.8 % Monocytes % 10.5 % Eosinophils % 3.6 % Basophils % 0.3 % Neutrophils # 7.2 (1.6-8.9) K/mcL Lymphocytes # 0.9 (0.6-4.6) K/mcL Monocytes # 1.0 (0.0-1.3) K/mcL Eosinophils # 0.3 (0.0-0.6) K/mcL Basophils # 0.0 (0.0-0.2) K/mcL Nucleated RBCs/100 WBC 0.3 H (0) /100 WBC Platelet Estimate Normal (Normal) Hypochromasia Present A (Not Present) Poikilocytosis 1+ A (Not Present) Anisocytosis 1+ A (Not Present) Microcytosis Present A (Not Present) PT 10.8 (9.4-12.1) Seconds INR 1.0 APTT 25.4 L (26.0-36.0) Seconds Sodium 139 (136-145) mEq/L Potassium 4.6 (3.5-5.1) mEq/L Chloride 108 H (98-107) mEq/L Carbon Dioxide 24 (23-29) mEq/L BUN 18 (8-23) mg/dL Creatinine 0.86 (0.60-1.20) mg/dL Est GFR ( Amer) > 60 (> 60) Est GFR (Non-Af Amer) > 60 (> 60) BUN/Creatinine Ratio 21 (6-26) Glucose 182 H (70-105) mg/dL Calculated Osmolality 295 (280-300) Calcium 9.0 (8.6-10.3) mg/dL Iron 83 (50-170) mcg/dL % Saturation 17 (15-50) % Transferrin 350 (203-362) mg/dL Troponin I (< 0.04) ng/mL Blood Type Antibody Screen Crossmatch 06/29/17 06/29/17 Range/Units 16:42 16:42 WBC (4.3-11.1) K/mcL RBC (3.82-4.97) M/mcL Hgb (11.5-15.4) g/dL Hct (35.3-44.9) % MCV (83.0-100.0) fL MCH (28.0-33.3) pg MCHC (31.6-35.5) g/dL RDW (11.5-14.5) % Plt Count (140-400) K/mcL MPV (9.4-12.4) fL Immature Gran % (0-4) % Seg Neutrophils % % Lymphocytes % % Monocytes % % Eosinophils % % Basophils % % Neutrophils # (1.6-8.9) K/mcL Lymphocytes # (0.6-4.6) K/mcL Monocytes # (0.0-1.3) K/mcL Eosinophils # (0.0-0.6) K/mcL Basophils # (0.0-0.2) K/mcL Nucleated RBCs/100 WBC (0) /100 WBC Platelet Estimate (Normal) Hypochromasia (Not Present) Poikilocytosis (Not Present) Anisocytosis (Not Present) Microcytosis (Not Present) PT (9.4-12.1) Seconds INR APTT (26.0-36.0) Seconds Sodium (136-145) mEq/L Potassium (3.5-5.1) mEq/L Chloride (98-107) mEq/L Carbon Dioxide (23-29) mEq/L BUN (8-23) mg/dL Creatinine (0.60-1.20) mg/dL Est GFR ( Amer) (> 60) Est GFR (Non-Af Amer) (> 60) BUN/Creatinine Ratio (6-26) Glucose (70-105) mg/dL Calculated Osmolality (280-300) Calcium (8.6-10.3) mg/dL Iron (50-170) mcg/dL % Saturation (15-50) % Transferrin (203-362) mg/dL Troponin I < 0.03 (< 0.04) ng/mL Blood Type O POSITIVE Antibody Screen NEGATIVE Crossmatch See Detail - Radiology Data Radiology results reviewed: Yes I reviewed the patient's radiology results. EXAMINATION: TWO VIEWS OF THE CHEST 06/29/2017 5:56 pm COMPARISON: 09/04/2014 HISTORY: ORDERING SYSTEM PROVIDED HISTORY: CHF Initial encounter acute illness. Difficulty breathing with low hemoglobin today. FINDINGS: The lungs are clear. The cardiac and mediastinal contours are stable. There is no pleural effusion or pneumothorax. No acute osseous abnormality is identified. There are mild degenerative changes in the thoracic spine. XR/XR chest 2V IMPRESSION: No acute cardiopulmonary abnormality. D/ / Kiel Lemus / Kiel Lemus Interpreting Provider: Kiel Lemus 05/23/17 EV/EV limited echocardiogram Impressions: LVEF 65%. Normal LV chamber size and function. Mild concentric left ventricular hypertrophy. Left Ventricular Wall Motion: Rest Echo Findings All wall segments showed normal motion. Findings: Study Quality * Technically adequate exam. ECG Findings * Normal sinus rhythm. Left Ventricle * LVEF 65%. * Normal LV chamber size and function. * Mild concentric left ventricular hypertrophy. Right Ventricle * Normal right ventricular structure and function. Left Atrium * Moderately dilated left atrium. Aorta * Normally sized aortic root. Pericardium * The pericardium appears normal. IVC * Normal IVC dimensions and inspiratory collapse. - EKG Data EKG attestation: Yes I reviewed and interpreted this EKG. EKG results narrative: 18:13:59. Sinus Rhythm. ST depression on ECG. Ventricular rate 68. NM interval 183 ms. QRS duration 82 ms. QT/QTc 365/382. Reviewed with attending.
[2017-06-29 16:51] LABS: Basophils % 0.3 %; Mean Platelet Volume 9.5 fL (9.4-12.4)
[2017-06-29 16:53] LABS: Eosinophils # 0.3 K/mcL (0.0-0.6); Eosinophils % 3.6 %; Hematocrit 26.2 % (35.3-44.9); Immature Granulocytes % 0.3 % (0-4); Lymphocytes # 0.9 K/mcL (0.6-4.6); Lymphocytes % 9.8 %; Mean Corpuscular HGB Conc 28.6 g/dL (31.6-35.5); Mean Corpuscular Volume 69.9 fL (83.0-100.0); Monocytes % 10.5 %; Neutrophils # 7.2 K/mcL (1.6-8.9); Nucleated Red Blood Cells 0.3 /100 WBC (0); Platelet Count 308 K/mcL (140-400); Red Blood Count 3.75 M/mcL (3.82-4.97); Red Cell Distribution Width 16.1 % (11.5-14.5); Segmented Neutrophils % 75.5 %
[2017-06-29 16:56] LABS: Prothrombin Time 10.8 Seconds (9.4-12.1)
[2017-06-29 16:59] LABS: Activated Partial Thrombo Time 25.4 Seconds (26.0-36.0); Hemoglobin 7.5 g/dL (11.5-15.4)
[2017-06-29 17:10] LABS: BUN/Creatinine Ratio 21 (6-26); Blood Urea Nitrogen 18 mg/dL (8-23); Carbon Dioxide 24 mEq/L (23-29); Chloride 108 mEq/L (98-107); Glucose 182 mg/dL (70-105); Osmolality,Calculated 295 (280-300); Potassium 4.6 mEq/L (3.5-5.1); Sodium 139 mEq/L (136-145); eGFR For African Americans > 60 (> 60); eGFR For Non-African Americans > 60 (> 60)
[2017-06-29 17:20] LABS: Anisocytosis 1+ (Not Present); Platelet Estimate Normal (Normal)
[2017-06-29 17:21] LABS: Hypochromasia Present (Not Present); Poikilocytosis 1+ (Not Present)
[2017-06-29 17:22] LABS: Microcytosis Present (Not Present)
[2017-06-29] MEDS ORDERED: Furosemide 20 MG/2 ML VIAL IV ONE (17:43)
[2017-06-29] MEDS ORDERED: 0.9 % Sodium Chloride 250 ML ONE (18:11)
[2017-06-29 19:06] LABS: % Iron Saturation 17 % (15-50); Iron 83 mcg/dL (50-170); Transferrin 350 mg/dL (203-362)
--- NOTE | 2017-06-29 20:47 | Internal Med History&Physical ---
Date of Encounter: 06/29/17 Time of Encounter: 20:44 Assessment and Plan (1) Symptomatic anemia Current visit: Yes Status: Acute Anemia due to GI bleed (2) GI bleed Current visit: Yes Status: Acute Regular likely upper GI bleed given melena will keep nothing by mouth after midnight consult GI for further evaluation Qualifiers: GI bleed type/associated pathology: melena Qualified Code(s): K92.1 - Melena (3) HTN (hypertension) Current visit: Yes Status: Chronic Chronic and well controlled Qualifiers: Hypertension type: essential hypertension Qualified Code(s): I10 - Essential (primary) hypertension (4) DM2 (diabetes mellitus, type 2) Current visit: No Status: Chronic Chronic we will resume home medication and place on sliding scale Qualifiers: Diabetes mellitus chcf insulin use: without terminal block assembler use Diabetes mellitus complication status: without complication Qualified Code(s): E11.9 - Type 2 diabetes mellitus without complications (5) Dementia Current visit: No Status: Chronic Chronic resume home medication Qualifiers: Dementia type: Alzheimer's disease Alzheimer's disease onset: unspecified onset Dementia behavioral disturbance: without behavioral disturbance Qualified Code(s): G30.9 - Alzheimer's disease, unspecified; F02.80 - Dementia in other diseases classified elsewhere without behavioral disturbance Internal Medicine - H&P: HPI Chief complaint: symptomatic anemia Admitted From: Emergency Dept Plans for Post Hospital Care: Home History of present illness: Ms. Santana is a 82 year old female Patient with history of dementia, congestive heart failure, high cholesterol, hypertension, CAD has a PTCA of LAD in the past, iron deficiency anemia and diabetes, patient had an outpatient lab drawn which came back hemoglobin is 7.6 and the patient was asked to come to the emergency room for further evaluation family has also noted black stool. Has had increased shortness of breath and fatigue In emergency room here hemoglobin was 7.5 with a low MCV . patient is hemodynamically stable but confused rectal exam in emergency room show heme positive stool patient will be admitted she is receiving blood in the emergency room and we will consult GI for further evaluation. be kept nothing by mouth after midnight Past Med Surg Social Fam HX - Past Medical History Medical history: CHF, dementia, hyperlipidemia, hypertension, myocardial infarction, other Psychiatric history: anxiety, depression - Past Surgical History Surgical History: other - Social History Smoking Status: Never smoker Smokeless Tobacco Status: No Alcohol use: none Drug use: none Internal Medicine - H&P: Meds Aripiprazole [Abilify] 5 mg PO DAILY 10/02/15 [History] Aspirin [Lo-Dose Aspirin EC] 81 mg PO DAILY 10/02/15 [History] Atorvastatin Calcium [Lipitor] 80 mg PO DAILY 10/02/15 [History] Donepezil [Aricept] 10 mg PO HS 10/02/15 [History] Ergocalciferol (VITAMIN D2) [Vitamin D2 (50,000 UNIT)] 50,000 unit PO QWEEK [History] Ferrous Sulfate [Iron] 325 mg PO DAILY 10/02/15 [History] Memantine HCl [Namenda Xr] 28 mg PO DAILY 10/02/15 [History] Metoprolol XL (24 HR) Succ [Toprol Xl] 25 mg PO DAILY 10/02/15 [History] Nitroglycerin [Nitrostat] 0.4 mg SL PRN PRN 10/02/15 [History] Omeprazole [PriLOSEC] 20 mg PO DAILY 10/02/15 [History] Sertraline [Zoloft] 150 mg PO DAILY 10/02/15 [History] metFORMIN [Glucophage] 500 mg PO BIDWM 10/02/15 [History] Ascorbate Calcium [Vitamin C] 500 mg PO DAILY 06/29/16 [History] Clopidogrel [Plavix] 75 mg PO DAILY tablet 06/30/16 [Rx] Ibuprofen 400 mg PO Q6HR PRN #14 tablet 06/30/16 [Rx] Ibuprofen [Motrin] 400 mg PO Q6HR PRN #10 tablet 06/30/16 [Rx] Isosorbide MONOnitrate (24 HR) [Imdur] 15 mg PO DAILY #0 06/30/16 [Rx] Lisinopril [Zestril] 2.5 mg PO DAILY #0 06/30/16 [Rx] Amoxicillin 875 mg PO BID #20 tablet 07/07/16 [Rx] Doxycycline 100 mg PO BID #20 capsule 07/07/16 [Rx] 3 Allergy/AdvReac Type Severity Reaction Status Date / Time Sulfa (Sulfonamide Allergy Rash Verified 06/28/16 23:54 Antibiotics) All Systems PM: A 10-system review of systems was performed and is negative for pertinent findings except as documented above in the HPI. - Constitutional Constitutional: fatigue, weakness - EENT Eyes: no change in vision, no discharge, no pain, no photophobia Ears: no ear discharge, no ear pain, no tinnitus Nose, mouth and throat: no dysphagia, no nasal discharge, no neck pain, no sore throat - Cardiovascular Cardiovascular ROS IM: dyspnea, dyspnea on exertion - Respiratory Respiratory: dyspnea on exertion - Gastrointestinal Gastrointestinal: melena - Genitourinary Genitourinary: no change in urinary stream, no dysuria, no flank pain, no hematuria - Musculoskeletal Musculoskeletal ROS IM: no numbness, no tingling - Neurological Neurological ROS: confusion, weakness - Constitutional Vitals: Temp Pulse Resp BP Pulse Ox 98.3 F 71 16 128/68 100 06/29/17 18:45 06/29/17 18:45 06/29/17 18:45 06/29/17 18:45 06/29/17 16:03 General appearance: Present: mild distress - Eye Eye exam: Present: PERRL, conjuntiva pink, sclera anicteric Pupils: Present: PERRL - Neck Neck exam general surgery: Present: supple, trachea midline. Absent: lymphadenopathy - Respiratory Respiratory exam: Present: rhonchi - Cardiovascular Cardiovascular exam: Present: RRR, +S1, +S2. Absent: diastolic murmur, gallop, rubs, systolic murmur - GI/Abdominal GI/Abdominal exam: Present: normal bowel sounds, soft, no peritoneal signs. Absent: distended, tenderness - Extremities Exam Extremities exam: Present: warm, radial pulses palpable and symmetrical. Absent : calf tenderness, cyanotic, pedal edema Internal Med - H&P Results - Labs CBC & Chem 7: 06/29/17 16:42 06/29/17 16:42
[2017-06-29] MEDS ORDERED: Acetaminophen 325 MG TABLET PO PRN (20:52)
[2017-06-29] MEDS ORDERED: Naloxone 0.4 MG/ML INJ IVP PRN (20:52)
--- NOTE | 2017-06-30 00:18 | Emergency Department Note ---
Disposition Clinical Impression: Anemia Disposition: Admitted As Inpatient Condition: Fair General Adult HPI - General Chief complaint: ED Shortness of Breath/Dyspnea Stated complaint: "low hemoglobin 7.6" DIAN Time Seen by Provider: 06/29/17 16:05 Source: patient, family Mode of arrival: private vehicle Limitations: age Nursing Notes Reviewed: Yes Vital Signs Reviewed: Yes - History of Present Illness Pain Scale: 0 - Related Data Home Medications Medication Instructions Recorded Confirmed Aripiprazole [Abilify] 5 mg PO DAILY 10/02/15 06/29/16 Aspirin [Lo-Dose Aspirin EC] 81 mg PO DAILY 10/02/15 06/29/16 Atorvastatin Calcium [Lipitor] 80 mg PO DAILY 10/02/15 06/29/16 Donepezil [Aricept] 10 mg PO HS 10/02/15 06/29/16 Ergocalciferol (VITAMIN D2) 50,000 unit PO QWEEK 10/02/15 06/29/16 [Vitamin D2 (50,000 UNIT)] Ferrous Sulfate [Iron] 325 mg PO DAILY 10/02/15 06/29/16 Memantine HCl [Namenda Xr] 28 mg PO DAILY 10/02/15 06/29/16 Metoprolol XL (24 HR) Succ [Toprol 25 mg PO DAILY 10/02/15 06/29/16 Xl] Nitroglycerin [Nitrostat] 0.4 mg SL PRN PRN 10/02/15 06/29/16 Omeprazole [PriLOSEC] 20 mg PO DAILY 10/02/15 06/29/16 Sertraline [Zoloft] 150 mg PO DAILY 10/02/15 06/29/16 metFORMIN [Glucophage] 500 mg PO BIDWM 10/02/15 06/29/16 Ascorbate Calcium [Vitamin C] 500 mg PO DAILY 06/29/16 06/29/16 Previous Rx's Medication Instructions Recorded Clopidogrel [Plavix] 75 mg PO DAILY tablet 06/30/16 Ibuprofen 400 mg PO Q6HR PRN #14 tablet 06/30/16 Ibuprofen [Motrin] 400 mg PO Q6HR PRN #10 tablet 06/30/16 Isosorbide MONOnitrate (24 HR) 15 mg PO DAILY #0 06/30/16 [Imdur] Lisinopril [Zestril] 2.5 mg PO DAILY #0 06/30/16 Amoxicillin 875 mg PO BID #20 tablet 07/07/16 Doxycycline 100 mg PO BID #20 capsule 07/07/16 Allergies Allergy/AdvReac Type Severity Reaction Status Date / Time Sulfa (Sulfonamide Allergy Rash Verified 06/28/16 23:54 Antibiotics) Constitutional: Denies: fever ENT ED: Reports: throat pain (intermittent ), other. Denies: dysphagia Cardiovascular: Denies: chest pain Respiratory: Reports: dyspnea. Denies: cough, hemoptysis Gastrointestinal: Reports: diarrhea (intermittent ), melena. Denies: abdominal pain, nausea, vomiting, hematochezia Genitourinary: Denies: urgency, dysuria, frequency Integumentary: Denies: rash Endocrine: Reports: fatigue Hematological/Lymphatic: Reports: easy bruising. Denies: easy bleeding Past Medical History - Past Medical History Medical history: Reports: CHF, dementia, diabetes, hyperlipidemia, hypertension , myocardial infarction, other Surgical history: Reports: angioplasty/stent, hysterectomy, other Psychiatric history: Reports: anxiety, depression - Social History Smoking Status: Never smoker Smokeless Tobacco Status: No Alcohol use: Reports: none Drug use: Reports: none Physical Exam - General Limitations: age General appearance: in no apparent distress Course Vital Signs Temperature 98.3 F 06/29/17 16:03 Pulse Rate 69 06/29/17 16:03 Respiratory Rate 16 06/29/17 16:03 Blood Pressure 133/57 06/29/17 16:03 O2 Sat by Pulse Oximetry 100 06/29/17 16:03 Temperature 99.4 F 06/29/17 23:52 Pulse Rate 80 06/29/17 23:52 Respiratory Rate 14 06/29/17 23:52 Blood Pressure 162/57 06/29/17 23:52 O2 Sat by Pulse Oximetry 93 06/29/17 23:52 Oxygen Delivery Oxygen Delivery Room Air Medical Decision Making - Lab Data Result diagrams: 06/29/17 16:42 06/29/17 16:42 Lab Results 06/29/17 06/29/17 06/29/17 Range/Units 16:42 16:42 16:42 WBC 9.5 (4.3-11.1) K/mcL RBC 3.75 L (3.82-4.97) M/mcL Hgb 7.5 L (11.5-15.4) g/dL Hct 26.2 L (35.3-44.9) % MCV 69.9 L (83.0-100.0) fL MCH 20.0 L (28.0-33.3) pg MCHC 28.6 L (31.6-35.5) g/dL RDW 16.1 H (11.5-14.5) % Plt Count 308 (140-400) K/mcL MPV 9.5 (9.4-12.4) fL Immature Gran % 0.3 (0-4) % Seg Neutrophils % 75.5 % Lymphocytes % 9.8 % Monocytes % 10.5 % Eosinophils % 3.6 % Basophils % 0.3 % Neutrophils # 7.2 (1.6-8.9) K/mcL Lymphocytes # 0.9 (0.6-4.6) K/mcL Monocytes # 1.0 (0.0-1.3) K/mcL Eosinophils # 0.3 (0.0-0.6) K/mcL Basophils # 0.0 (0.0-0.2) K/mcL Nucleated RBCs/100 WBC 0.3 H (0) /100 WBC Platelet Estimate Normal (Normal) Hypochromasia Present A (Not Present) Poikilocytosis 1+ A (Not Present) Anisocytosis 1+ A (Not Present) Microcytosis Present A (Not Present) PT 10.8 (9.4-12.1) Seconds INR 1.0 APTT 25.4 L (26.0-36.0) Seconds Sodium 139 (136-145) mEq/L Potassium 4.6 (3.5-5.1) mEq/L Chloride 108 H (98-107) mEq/L Carbon Dioxide 24 (23-29) mEq/L BUN 18 (8-23) mg/dL Creatinine 0.86 (0.60-1.20) mg/dL Est GFR ( Amer) > 60 (> 60) Est GFR (Non-Af Amer) > 60 (> 60) BUN/Creatinine Ratio 21 (6-26) Glucose 182 H (70-105) mg/dL Calculated Osmolality 295 (280-300) Calcium 9.0 (8.6-10.3) mg/dL Iron 83 (50-170) mcg/dL % Saturation 17 (15-50) % Transferrin 350 (203-362) mg/dL Troponin I (< 0.04) ng/mL Blood Type Antibody Screen Crossmatch 06/29/17 06/29/17 Range/Units 16:42 16:42 WBC (4.3-11.1) K/mcL RBC (3.82-4.97) M/mcL Hgb (11.5-15.4) g/dL Hct (35.3-44.9) % MCV (83.0-100.0) fL MCH (28.0-33.3) pg MCHC (31.6-35.5) g/dL RDW (11.5-14.5) % Plt Count (140-400) K/mcL MPV (9.4-12.4) fL Immature Gran % (0-4) % Seg Neutrophils % % Lymphocytes % % Monocytes % % Eosinophils % % Basophils % % Neutrophils # (1.6-8.9) K/mcL Lymphocytes # (0.6-4.6) K/mcL Monocytes # (0.0-1.3) K/mcL Eosinophils # (0.0-0.6) K/mcL Basophils # (0.0-0.2) K/mcL Nucleated RBCs/100 WBC (0) /100 WBC Platelet Estimate (Normal) Hypochromasia (Not Present) Poikilocytosis (Not Present) Anisocytosis (Not Present) Microcytosis (Not Present) PT (9.4-12.1) Seconds INR APTT (26.0-36.0) Seconds Sodium (136-145) mEq/L Potassium (3.5-5.1) mEq/L Chloride (98-107) mEq/L Carbon Dioxide (23-29) mEq/L BUN (8-23) mg/dL Creatinine (0.60-1.20) mg/dL Est GFR ( Amer) (> 60) Est GFR (Non-Af Amer) (> 60) BUN/Creatinine Ratio (6-26) Glucose (70-105) mg/dL Calculated Osmolality (280-300) Calcium (8.6-10.3) mg/dL Iron (50-170) mcg/dL % Saturation (15-50) % Transferrin (203-362) mg/dL Troponin I < 0.03 (< 0.04) ng/mL Blood Type O POSITIVE Antibody Screen NEGATIVE Crossmatch See Detail Attestation Statement - Attestation Attestation: I, Gregor Soares, examined this patient and my medical decision-making was reviewed with the MEDIA PRODUCTION OPERATOR/PA/Advanced Practice Nurse/Resident Physician. I agree with the documented findings, disposition and treatment plan as described except to the extent set forth below. 82-year-old female presents emergency Department with concerns of anemia. Patient has a history of GI bleeding in the past which caused her to be anemic requiring transfusion 6 months ago. She refused a colonoscopy at that time. Over the past few weeks the patient has become increasingly short of breath and weak with exertion. Patient denies chest pain in the emergency department, there have been no near syncopal symptoms and she has not syncopized. Patient denies hematochezia or melena, although family reports she has had her stools. Patient has a positive Hemoccult stool on exam, performed by resident Dr. Selby. Transfusion of red blood cells ordered from the emergency department. Patient had ST depression in lead V5 on EKG. Initial troponin negative. Vital signs stable prior to admission to the hospital.
[2017-06-30 05:09] LABS: Hematocrit 28.9 % (35.3-44.9); Hemoglobin 8.7 g/dL (11.5-15.4); Mean Corpuscular HGB Conc 30.1 g/dL (31.6-35.5); Mean Corpuscular Hemoglobin 21.7 pg (28.0-33.3); Mean Corpuscular Volume 72.1 fL (83.0-100.0); Mean Platelet Volume 9.6 fL (9.4-12.4); Platelet Count 274 K/mcL (140-400); Red Blood Count 4.01 M/mcL (3.82-4.97); Red Cell Distribution Width 17.7 % (11.5-14.5)
[2017-06-30 05:32] LABS: Alanine Aminotransferase 8 Units/L (7-52); Albumin 3.4 g/dL (3.5-5.7); Albumin/Globulin Ratio 1.3 (1.1-2.2); Alkaline Phosphatase 87 Units/L (34-104); Aspartate Amino Transferase 11 Units/L (13-39); BUN/Creatinine Ratio 22 (6-26); Bilirubin,Total 0.4 mg/dL (0.3-1.0); Blood Urea Nitrogen 17 mg/dL (8-23); Calcium 9.1 mg/dL (8.6-10.3); Carbon Dioxide 26 mEq/L (23-29); Chloride 106 mEq/L (98-107); Chol/HDL Ratio 2.7 (0-4.9); Cholesterol 109 mg/dL (< 200); Globulin 2.7 g/dL (2.4-3.5); Glucose 132 mg/dL (70-105); HDL Cholesterol 41 mg/dL (40-59); LDL Cholesterol,Calculated 51 mg/dL (0-99); Magnesium 2.1 mg/dL (1.6-2.6); Osmolality,Calculated 297 (280-300); Sodium 142 mEq/L (136-145); Total Protein 6.1 g/dL (6.4-8.9); Triglycerides 84 mg/dL (< 150); eGFR For African Americans > 60 (> 60); eGFR For Non-African Americans > 60 (> 60)
[2017-06-30] MEDS ORDERED: Pantoprazole 40 MG VIAL IVP SCH (06:30)
[2017-06-30] MEDS: ARIPiprazole 5 MG TABLET PO SCH (08:25)
[2017-06-30] MEDS: Metoprolol XL (24 HR) Succ 25 MG TAB.ER.24H PO SCH (08:26)
[2017-06-30] MEDS: Isosorbide MONOnitrate (24 HR) 30 MG TAB.ER.24H PO SCH (08:27)
[2017-06-30] MEDS: Ascorbic Acid 500 MG TABLET PO SCH (08:28)
[2017-06-30] MEDS: 0.9 % Sodium Chloride 1,000 ML IVC SCH (11:45)
[2017-06-30] MEDS ORDERED: *HR* Propofol 200 MG/20 ML VIAL IVP ONE (12:09)
[2017-06-30] MEDS ORDERED: Lidocaine -MPF 2% 2 ML VIAL ONE (12:09)
--- NOTE | 2017-06-30 12:16 | Internal Med Progress Note ---
Date of Encounter: 06/30/17 Time of Encounter: 12:12 - Assessment and plan (1) GI bleed Current Visit: Yes Status: Acute Assessment and plan: patient has few weeks of melana, denies abdominal pain, she has been on plvix and ASA I spoke to GI Dr Garcia will do scope today ijncrease PPI to BID Qualifiers: GI bleed type/associated pathology: melena Qualified Code(s): K92.1 - Melena (2) Symptomatic anemia Current Visit: Yes Status: Acute Assessment and plan: Received a 1 unit of PRBC (3) DM2 (diabetes mellitus, type 2) Current Visit: Yes Status: Chronic Assessment and plan: Add insulin sliding scale Qualifiers: Diabetes mellitus buttermaker insulin use: without buttermaker use Diabetes mellitus complication status: without complication Qualified Code(s): E11.9 - Type 2 diabetes mellitus without complications (4) HTN (hypertension) Current Visit: Yes Status: Chronic Qualifiers: Hypertension type: essential hypertension Qualified Code(s): I10 - Essential (primary) hypertension (5) Dementia Current Visit: Yes Status: Chronic Assessment and plan: Patient lives at home with family, able to ambulate at home Qualifiers: Dementia type: Alzheimer's disease Alzheimer's disease onset: unspecified onset Dementia behavioral disturbance: without behavioral disturbance Qualified Code(s): G30.9 - Alzheimer's disease, unspecified; F02.80 - Dementia in other diseases classified elsewhere without behavioral disturbance - Time Spent With Patient Greater than 35 minutes - Subjective Interval history: Patient with history of dementia, congestive heart failure, high cholesterol, hypertension, CAD has a PTCA of LAD in the past, iron deficiency anemia and diabetes, patient had an outpatient lab drawn which came back hemoglobin is 7.6 and the patient was asked to come to the emergency room for further evaluation family has also noted black stool. Has had increased shortness of breath and fatigue In emergency room here hemoglobin was 7.5 with a low MCV . patient is hemodynamically stable but confused rectal exam in emergency room show heme positive stool 1. patient was admitted for GI bleeding with black stool for few weeks, I spoke to Dr Garcia, GI will do scope today, change PPI to BID 2. CAD s/p stent few weeks ago, on plavix, will hold PLvix, continue ASA 3. anemia of acute GI bleeding, received one unit, Hb improved. - Constitutional Vitals: Temp Pulse Resp BP Pulse Ox 98.2 F 67 20 101/60 90 06/30/17 11:00 06/30/17 11:00 06/30/17 11:00 06/30/17 11:00 06/30/17 11:00 General appearance: Present: A&O X 1, mild distress, pleasant, obese Exam: CONSTITUTIONAL: patient appears as an age appropriate female in no acute distress. EYES Clear sclerae, bilateral pupils are equal, reactive to light. EMOI. RESPIRATORY: No accessory muscle use, bilateral clear to auscultation, no wheezing, no crackles/rales. CARDIOVASCULAR: Regular heart rate, normal S1 and S2, no murmurs GASTROINTESTINAL: bowel sounds present, soft, no tenderness. MUSCULOSKELETAL: Joints in normal range of motion, no clubbing, no edema, no cyanosis. Bilateral peripheral pulses 2+. NEUROLOGIC: CN II to XII are grossly intact, no focal neurological deficit. Internal Medicine: Result - Labs CBC & Chem 7: 06/30/17 04:38 06/30/17 04:38 Labs: Short CBC 06/30/17 Range/Units 04:38 WBC 7.5 (4.3-11.1) K/mcL Hgb 8.7 L (11.5-15.4) g/dL Hct 28.9 L (35.3-44.9) % Plt Count 274 (140-400) K/mcL BMP 06/30/17 04:38 Sodium 142 Potassium 4.0 Chloride 106 Carbon Dioxide 26 BUN 17 Creatinine 0.77 Glucose 132 H Calcium 9.1 Liver Function 06/30/17 Range/Units 04:38 Total Bilirubin 0.4 (0.3-1.0) mg/dL AST 11 L (13-39) Units/L ALT 8 (7-52) Units/L Alkaline Phosphatase 87 (34-104) Units/L Albumin 3.4 L (3.5-5.7) g/dL - ABG Interpretation ABG results: PT/INR, D-dimer PT 10.8 Seconds (9.4-12.1) 06/29/17 16:42 - VTE Documentation of Mechanical Device: Intermittent pneumatic compression device Consult Discharge Plan - Plan Referrals: Yovanny Parker MD [Primary Care Provider] -
[2017-06-30] MEDS ORDERED: Dextrose Gel 15 GM/37.5 ML TUBE PO PRN ×2 (12:23)
[2017-06-30] MEDS ORDERED: *HR* Dextrose 50 % in Water (Syg) 50 ML SYRINGE IVP PRN (12:23)
[2017-06-30] MEDS ORDERED: D5% in Water 1,000 ML IVC PRN (12:23)
--- NOTE | 2017-06-30 12:41 | Anesthesia Evaluation PreOp ---
Date of Encounter: 06/30/17 Time of Encounter: 12:38 - Past History Planned Operation: EGD Cardiac History: [place], CHF, HTN, Hyperlipidemia, Cardiac Stent (stent x 2 in 2015) Pulmonary History: Former smoker PHILOSOPHY INSTRUCTOR History: Other (dementia) Other Medical History: Diabetes Type II, GERD, Other (anxiety/depression) Anesthesia History: No Prior Anesthetic Complications, Past Anesthesia (no prior general anesthesia) Alcohol Use: none Drug use: none Medications and Allergies Aripiprazole [Abilify] 5 mg PO DAILY 10/02/15 [History] Aspirin [Lo-Dose Aspirin EC] 81 mg PO DAILY 10/02/15 [History] Atorvastatin Calcium [Lipitor] 80 mg PO DAILY 10/02/15 [History] Donepezil [Aricept] 10 mg PO HS 10/02/15 [History] Ferrous Sulfate [Iron] 325 mg PO DAILY 10/02/15 [History] Memantine HCl [Namenda Xr] 28 mg PO DAILY 10/02/15 [History] Metoprolol XL (24 HR) Succ [Toprol Xl] 25 mg PO DAILY 10/02/15 [History] Nitroglycerin [Nitrostat] 0.4 mg SL PRN PRN 10/02/15 [History] Omeprazole [PriLOSEC] 20 mg PO DAILY 10/02/15 [History] Sertraline [Zoloft] 150 mg PO DAILY 10/02/15 [History] metFORMIN [Glucophage] 500 mg PO BIDWM 10/02/15 [History] Ascorbate Calcium [Vitamin C] 500 mg PO DAILY 06/29/16 [History] Clopidogrel [Plavix] 75 mg PO DAILY tablet 06/30/16 [Rx] Isosorbide MONOnitrate (24 HR) [Imdur] 30 mg PO DAILY 06/30/17 [History] Lisinopril [Zestril] 5 mg PO DAILY 06/30/17 [History] 3 Allergy/AdvReac Type Severity Reaction Status Date / Time Sulfa (Sulfonamide Allergy Rash Verified 06/28/16 23:54 Antibiotics) - Meds/Allergy Pre-op Review Medications Reviewed: Yes Allergies Reviewed: Yes Beta Blockers on Current Med List: Yes If Beta Blockers taken, Date/Time (Last Dose taken): 06/30/2017 at 0826 Anesthesia Results - Labs 06/30/17 04:38 06/30/17 04:38 - Imaging EKG: report reviewed (09/04/[address] DEVIATION AND MODERATE T- WAVE ABNORMALITY, CONSIDER ANTEROLATERAL ISCHEMIA) Additional studies: 05/13/2017 Limited Echo Impressions: LVEF 65%. Normal LV chamber size and function. Mild concentric left ventricular hypertrophy. 09/05/2014 Stress Impression: Pharmacologic stress ECG is non diagnostic for ischemia due to baseline non-specific ST and T changes. Gated EF > 70%. There is a small sized, mild intensity, reversible mid anteroseptal defect (SDS 1). This could represent a small area of ischemia. There is a small sized, mild to moderate intensity, primarily fixed inferolateral defect. Wall motion is normal. These findings are suggestive of artifact. TID ratio is 1.84 and there is visual TID. This is a nonspecific finding which can be associated with severe CAD. Clinical correlation suggested. 3B nurse, Rasheeda, notified and Dr. Gilmore was sent a [employer] message. Anesthesia Exam Vital Signs/O2 Sat/Glucose, Most Recent Temp Pulse Resp BP Pulse Ox 97.8 F 61 18 129/50 98 06/30/17 12:37 06/30/17 12:37 06/30/17 12:37 06/30/17 12:37 06/30/17 12:37 Blood Glucose* 138 Height: 5'5''/1.65 m Weight: 182 lbs/82.6 kg NPO (# of Hours): 8 Pain Scale: 0 Pain Scale Used: Numeric (1 - 10) - HEENT Pupil (Motor): EOMI Mallampati: II Teeth: Normal (has 2 lower teeth), Missing, Prosthesis Denture Type: Upper: Complete, Lower: Partial Oral Opening: Greater than 3 - PHILOSOPHY INSTRUCTOR LOC: Oriented PHILOSOPHY INSTRUCTOR Motor: Normal RUE, Normal LUE, Normal RLE, Normal LLE, Normal Face PHILOSOPHY INSTRUCTOR Sensory: Normal: RUE, LUE, RLE, LLE, Face - Cardiac Rhythm: Regular Murmur: None - Pulmonary Breath Sounds: bilateral Clear Respiratory Effort: Symmetrical Anesthesia Assess/Plan ASA Score: 3 Modified Freedom Scale for Level of Consciousness: Cooperative, oriented, and tranquil Anesthetic Plan: MAC Monitoring Plan: Standard Monitors
--- NOTE | 2017-06-30 12:47 | Gastroenterology Consult Note ---
<Malini Delgado - Last Filed: 06/30/17 12:41> Date of Encounter: 06/30/17 Time of Encounter: 11:00 - Assessment and plan (1) Anemia Current Visit: Yes Status: Acute Assessment and plan: Pt presents with anemia, hgb 7.6, and melena. She needs EGD, will plan for today may need colonoscopy. Pt daughter states she has a history of peptic ulcer disease in the past Qualifiers: Anemia type: iron deficiency Iron deficiency anemia type: other iron deficiency Qualified Code(s): D50.8 - Other iron deficiency anemias - Time Spent With Patient Total time spent is greater than 50% in coordination of care (as documented) at patient's floor/unit and/or counseling patient: GI History of Present Illness - Data of Consult Patient: new to practice Consult date: 06/30/17 Requesting Physician: Mesfin Herndon MD - Consult Narrative Reason for consult: anemia History of present illness: Ms. Santana is a 82 year old female Patient with history of dementia, congestive heart failure, high cholesterol, hypertension, CAD has a PTCA of LAD in the past, iron deficiency anemia and diabetes, patient had an outpatient lab drawn which came back hemoglobin is 7.6 and the patient was asked to come to the emergency room for further evaluation. Her daughter is at the bedside and states she has been having black stools but she is unsure for how long. She states the patient lives alone and has several family members that provide around the clock care as her dementia has been progressing. She does report increased confusion and lethargy the past couple days as well as shortness of breath and fatigue. In emergency room here hemoglobin was 7.5 with a low MCV . patient. Stool was positive for occult blood. Her daughter reports a history of anemia last year but she refused scopes at that time. Has also been seen by oncology in the past for iron deficiency anemia. egd: none colon: none NSAIDS; none Anticoagulants; none Past Med Surg Social Fam HX - Past Medical History Medical history: CHF, dementia, diabetes, hyperlipidemia, hypertension, myocardial infarction, other Psychiatric history: anxiety, depression - Past Surgical History Surgical History: angioplasty/stent, hysterectomy, other - Social History Smoking Status: Never smoker Smokeless Tobacco Status: No Alcohol use: none Drug use: none - Gastrointestinal Additional Comments: GI: as per CHIGNIK LAGOON GENERAL: denies fever, has some chills EYES: denies yellow discoloration ENT: denies pain with swallowing or difficulty swallowing CARDIO: denies chest pain, palpitations RESP: No Shortness of breath with exertion : denies change in color of urine NEURO: see hpi HEME: Denies any bruising MS: denies joint pain, joint swelling or back pain. DERM: denies rash or itching PSYCH: Denies history of anxiety or depression - Constitutional Vitals: Temp Pulse Resp BP Pulse Ox 97.8 F 61 18 129/50 98 06/30/17 12:37 06/30/17 12:37 06/30/17 12:37 06/30/17 12:37 06/30/17 12:37 Exam: CONSTITUTIONAL:~lethargic, not answering questions.~HEAD:~normocephalic.~EYES:~ no jaundice.~NECK:~no obvious swelling.~HEART:~regular rate and rhythm, no murmurs.~LUNGS:~bilateral poor air entry.~ABDOMEN:~non distended, soft, non tender, no masses palpable, no organomegaly.~RECTAL EXAM:~Deferred.~EXTREMITIES: ~no clubbing, cyanosis or edema.~SKIN:~no stigmata of chronic liver disease.~ NEUROLOGIC:~no obvious focal defect.~~~~ Results - Labs CBC & Chem 7: 06/30/17 04:38 06/30/17 04:38 Labs: Last Result Calcium 9.1 mg/dL (8.6-10.3) 06/30/17 04:38 Iron 83 mcg/dL (50-170) 06/29/17 16:42 % Saturation 17 % (15-50) 06/29/17 16:42 Transferrin 350 mg/dL (203-362) 06/29/17 16:42 Troponin I < 0.03 ng/mL (< 0.04) 06/29/17 16:42 Triglycerides 84 mg/dL (< 150) 06/30/17 04:38 Entire Visit Hgb 8.7 g/dL (11.5-15.4) L 06/30/17 04:38 Hct 28.9 % (35.3-44.9) L 06/30/17 04:38 PT 10.8 Seconds (9.4-12.1) 06/29/17 16:42 Total Bilirubin 0.4 mg/dL (0.3-1.0) 06/30/17 04:38 AST 11 Units/L (13-39) L 06/30/17 04:38 ALT 8 Units/L (7-52) 06/30/17 04:38 - ABG ABG results: PT/INR, D-dimer PT 10.8 Seconds (9.4-12.1) 06/29/17 16:42 Consult Discharge Plan - Plan Referrals: Yovanny Parker MD [Primary Care Provider] - <Olive Garcia - Last Filed: 06/30/17 14:47> Date of Encounter: 06/30/17 Time of Encounter: 13:00 - Time Spent With Patient Total time spent is greater than 50% in coordination of care (as documented) at patient's floor/unit and/or counseling patient: GI History of Present Illness - Data of Consult Requesting Physician: Mesfin Herndon MD - Consult Narrative History of present illness: Ms. Santana is a 82 year old female - Constitutional Vitals: Temp Pulse Resp BP Pulse Ox 98.2 F 60 16 150/73 92 06/30/17 13:44 06/30/17 13:44 06/30/17 13:44 06/30/17 13:44 06/30/17 13:44 Results - Labs CBC & Chem 7: 06/30/17 04:38 06/30/17 04:38 Labs: Last Result Calcium 9.1 mg/dL (8.6-10.3) 06/30/17 04:38 Iron 83 mcg/dL (50-170) 06/29/17 16:42 % Saturation 17 % (15-50) 06/29/17 16:42 Transferrin 350 mg/dL (203-362) 06/29/17 16:42 Troponin I < 0.03 ng/mL (< 0.04) 06/29/17 16:42 Triglycerides 84 mg/dL (< 150) 06/30/17 04:38 Entire Visit Hgb 8.7 g/dL (11.5-15.4) L 06/30/17 04:38 Hct 28.9 % (35.3-44.9) L 06/30/17 04:38 PT 10.8 Seconds (9.4-12.1) 06/29/17 16:42 Total Bilirubin 0.4 mg/dL (0.3-1.0) 06/30/17 04:38 AST 11 Units/L (13-39) L 06/30/17 04:38 ALT 8 Units/L (7-52) 06/30/17 04:38 - ABG ABG results: PT/INR, D-dimer PT 10.8 Seconds (9.4-12.1) 06/29/17 16:42 - Attending Attestation I have personally performed a face to face evaluation on this patient. I have reviewed and agree with the care plan. History and Exam by me shows: Patient seen.Patient with history of dementia, and multiple other comorbidities who was admitted because of anemia. Per daughter on and off she does has some black stool. On rectal examination today stools are brown. No colonoscopy in the past. Recommendation: Patient will have an EGD done today and if negative then she will need a colonoscopy meanwhile follow H&H
[2017-06-30 13:04] LABS: Estimated Average Glucose 189 mg/dl; Hemoglobin A1C 8.2 %
[2017-06-30] MEDS ORDERED: Tetracaine/Benzocaine/Butamben 200MG/SPRAY (100SPY/BOT) MM ONE (13:14)
[2017-06-30] MEDS ORDERED: Polyethylene Glycol 3350 255 GM POWDER PO ONE (15:00)
[2017-06-30] MEDS: Insulin LISPRO 300 UNITS/3 ML VIAL SQ SCH (16:48)
[2017-06-30 18:13] LABS: Hemoglobin 9.6 g/dL (11.5-15.4); Mean Corpuscular HGB Conc 29.1 g/dL (31.6-35.5); Mean Corpuscular Hemoglobin 21.5 pg (28.0-33.3); Mean Corpuscular Volume 73.8 fL (83.0-100.0); Mean Platelet Volume 9.6 fL (9.4-12.4); Platelet Count 336 K/mcL (140-400); Red Blood Count 4.47 M/mcL (3.82-4.97); Red Cell Distribution Width 18.2 % (11.5-14.5)
[2017-06-30] MEDS: Pantoprazole 40 MG VIAL IVP SCH (18:15)
[2017-06-30] MEDS ORDERED: Insulin LISPRO 300 UNITS/3 ML VIAL SQ SCH (21:00)
[2017-07-01] MEDS: Pantoprazole 40 MG VIAL IVP SCH ×2 (05:17→17:28)
[2017-07-01 06:07] LABS: Basophils % 0.3 %; Eosinophils # 0.4 K/mcL (0.0-0.6); Eosinophils % 5.3 %; Hematocrit 30.4 % (35.3-44.9); Hemoglobin 8.9 g/dL (11.5-15.4); Immature Granulocytes % 0.4 % (0-4); Lymphocytes # 0.9 K/mcL (0.6-4.6); Lymphocytes % 12.3 %; Mean Corpuscular HGB Conc 29.3 g/dL (31.6-35.5); Mean Corpuscular Hemoglobin 21.7 pg (28.0-33.3); Mean Corpuscular Volume 74.1 fL (83.0-100.0); Mean Platelet Volume 9.7 fL (9.4-12.4); Monocytes # 0.7 K/mcL (0.0-1.3); Monocytes % 10.2 %; Nucleated Red Blood Cells 0.6 /100 WBC (0); Platelet Count 284 K/mcL (140-400); Red Cell Distribution Width 18.7 % (11.5-14.5); Segmented Neutrophils % 71.5 %
[2017-07-01 06:22] LABS: BUN/Creatinine Ratio 19 (6-26); Blood Urea Nitrogen 14 mg/dL (8-23); Calcium 8.7 mg/dL (8.6-10.3); Carbon Dioxide 23 mEq/L (23-29); Chloride 109 mEq/L (98-107); Glucose 145 mg/dL (70-105); Osmolality,Calculated 291 (280-300); Potassium 3.7 mEq/L (3.5-5.1); Sodium 139 mEq/L (136-145); eGFR For African Americans > 60 (> 60); eGFR For Non-African Americans > 60 (> 60)
[2017-07-01] MEDS: Insulin LISPRO 300 UNITS/3 ML VIAL SQ SCH ×3 (08:55→17:20)
[2017-07-01] MEDS: Ascorbic Acid 500 MG TABLET PO SCH (09:02)
[2017-07-01] MEDS: Metoprolol XL (24 HR) Succ 25 MG TAB.ER.24H PO SCH (09:02)
[2017-07-01] MEDS: Isosorbide MONOnitrate (24 HR) 30 MG TAB.ER.24H PO SCH (09:02)
[2017-07-01] MEDS: ARIPiprazole 5 MG TABLET PO SCH (10:37)
[2017-07-01] MEDS: 0.9 % Sodium Chloride 1,000 ML IVC SCH (10:37)
--- NOTE | 2017-07-01 12:14 | Internal Med Progress Note ---
Date of Encounter: 07/01/17 Time of Encounter: 12:14 - Assessment and plan (1) GI bleed Current Visit: Yes Status: Acute Assessment and plan: EGD 06/30 was unremarkable Continue cycle H&H s/p 1 unit PRBC (06/29/17) Colonoscopy today. Qualifiers: GI bleed type/associated pathology: melena Qualified Code(s): K92.1 - Melena (2) Symptomatic anemia Current Visit: Yes Status: Acute (3) DM2 (diabetes mellitus, type 2) Current Visit: Yes Status: Chronic Assessment and plan: Controlled. Goal blood glucose levels 140-180 Qualifiers: Diabetes mellitus mcc insulin use: without long term care pharmacist use Diabetes mellitus complication status: without complication Qualified Code(s): E11.9 - Type 2 diabetes mellitus without complications (4) Dementia Current Visit: Yes Status: Chronic Assessment and plan: Patient lives at home with family, able to ambulate at home Qualifiers: Dementia type: Alzheimer's disease Alzheimer's disease onset: unspecified onset Dementia behavioral disturbance: without behavioral disturbance Qualified Code(s): G30.9 - Alzheimer's disease, unspecified; F02.80 - Dementia in other diseases classified elsewhere without behavioral disturbance (5) HTN (hypertension) Current Visit: Yes Status: Chronic Qualifiers: Hypertension type: essential hypertension Qualified Code(s): I10 - Essential (primary) hypertension - Time Spent With Patient Total time spent is greater than 50% in coordination of care (as documented) at patient's floor/unit and/or counseling patient: - Subjective Interval history: No complaints, no acute events. Patient with history of dementia, congestive heart failure, high cholesterol, hypertension, CAD has a PTCA of LAD in the past, iron deficiency anemia and diabetes, patient had an outpatient lab drawn which came back hemoglobin is 7.6 and the patient was asked to come to the emergency room for further evaluation family has also noted black stool. Has had increased shortness of breath and fatigue In emergency room here hemoglobin was 7.5 with a low MCV. EGD done 06/30 showed only a small hiatal hernia. - Constitutional Vitals: Temp Pulse Resp BP Pulse Ox 98.1 F 55 15 126/56 92 07/01/17 11:52 07/01/17 11:52 07/01/17 11:52 07/01/17 11:52 07/01/17 11:52 General appearance: Present: A&O X 1, mild distress, pleasant, obese - Head Head exam: Present: atraumatic, normocephalic - Eye Eye exam: Present: PERRL, conjuntiva pink, sclera anicteric Pupils: Present: PERRL - Neck Neck exam general surgery: Present: supple, trachea midline. Absent: lymphadenopathy - Respiratory Respiratory exam: Present: CTAB. Absent: accessory muscle use, rales, rhonchi, wheezes - Cardiovascular Cardiovascular exam: Present: RRR, +S1, +S2. Absent: diastolic murmur, gallop, rubs, systolic murmur - GI/Abdominal GI/Abdominal exam: Present: normal bowel sounds, soft, no peritoneal signs. Absent: distended, tenderness - Extremities Exam Extremities exam: Present: warm, radial pulses palpable and symmetrical. Absent : calf tenderness, cyanotic, pedal edema - Neurological Exam Neurological exam: Present: CN II-XII intact, oriented X3, no focal deficits. Absent: pronater drift, facial droop, speech deficit - Skin Skin exam: Present: dry, intact Internal Medicine: Result - Labs CBC & Chem 7: 07/01/17 05:46 07/01/17 05:46 Labs: Short CBC 06/30/17 07/01/17 Range/Units 17:47 05:46 WBC 9.1 7.0 (4.3-11.1) K/mcL Hgb 9.6 L 8.9 L (11.5-15.4) g/dL Hct 33.0 L 30.4 L (35.3-44.9) % Plt Count 336 284 (140-400) K/mcL Neutrophils # 5.0 (1.6-8.9) K/mcL BMP 07/01/17 05:46 Sodium 139 Potassium 3.7 Chloride 109 H Carbon Dioxide 23 BUN 14 Creatinine 0.75 Glucose 145 H Calcium 8.7 - ABG Interpretation ABG results: PT/INR, D-dimer PT 10.8 Seconds (9.4-12.1) 06/29/17 16:42 - VTE Documentation of Mechanical Device: Intermittent pneumatic compression device Consult Discharge Plan - Plan Referrals: Yovanny Parker MD [Primary Care Provider] -
[2017-07-01] MEDS ORDERED: *HR* FentaNYL (PF) 100 MCG/2 ML VIAL ONE (14:19)
[2017-07-01] MEDS ORDERED: *HR* Midazolam HCl 5 MG/5 ML VIAL IVP ONE (14:19)
[2017-07-01] MEDS ORDERED: *HR* Midazolam HCl 2 MG/2 ML VIAL IVP ONE (14:40)
[2017-07-01] MEDS ORDERED: *HR* FentaNYL (PF) 100 MCG/2 ML VIAL IVP ONE (14:40)
[2017-07-01] MEDS ORDERED: Simethicone 40 MG/0.6 ML MLS IR ONE (14:40)
[2017-07-02] MEDS: 0.9 % Sodium Chloride 1,000 ML IVC SCH (00:32)
[2017-07-02] MEDS: Pantoprazole 40 MG VIAL IVP SCH ×2 (06:07→18:06)
[2017-07-02 06:14] LABS: BUN/Creatinine Ratio 25 (6-26); Blood Urea Nitrogen 16 mg/dL (8-23); Calcium 8.3 mg/dL (8.6-10.3); Carbon Dioxide 23 mEq/L (23-29); Chloride 112 mEq/L (98-107); Glucose 136 mg/dL (70-105); Osmolality,Calculated 289 (280-300); Potassium 4.1 mEq/L (3.5-5.1); Sodium 138 mEq/L (136-145); eGFR For African Americans > 60 (> 60); eGFR For Non-African Americans > 60 (> 60)
[2017-07-02 06:17] LABS: Basophils % 0.2 %; Eosinophils % 2.3 %; Mean Platelet Volume 9.4 fL (9.4-12.4)
[2017-07-02 06:18] LABS: Eosinophils # 0.2 K/mcL (0.0-0.6); Hematocrit 31.5 % (35.3-44.9); Hemoglobin 9.2 g/dL (11.5-15.4); Immature Granulocytes % 0.3 % (0-4); Lymphocytes # 0.7 K/mcL (0.6-4.6); Lymphocytes % 7.3 %; Mean Corpuscular HGB Conc 29.2 g/dL (31.6-35.5); Mean Corpuscular Hemoglobin 21.7 pg (28.0-33.3); Mean Corpuscular Volume 74.5 fL (83.0-100.0); Monocytes # 0.7 K/mcL (0.0-1.3); Monocytes % 7.5 %; Neutrophils # 8.1 K/mcL (1.6-8.9); Platelet Count 275 K/mcL (140-400); Red Blood Count 4.23 M/mcL (3.82-4.97); Red Cell Distribution Width 19.9 % (11.5-14.5); Segmented Neutrophils % 82.4 %
[2017-07-02 07:04] LABS: Hypochromasia Present (Not Present); Platelet Estimate Normal (Normal)
[2017-07-02] MEDS: ARIPiprazole 5 MG TABLET PO SCH (08:58)
[2017-07-02] MEDS: Ascorbic Acid 500 MG TABLET PO SCH (08:58)
[2017-07-02] MEDS: Isosorbide MONOnitrate (24 HR) 30 MG TAB.ER.24H PO SCH (08:58)
[2017-07-02] MEDS: Metoprolol XL (24 HR) Succ 25 MG TAB.ER.24H PO SCH (08:58)
--- NOTE | 2017-07-02 12:11 | Internal Med Progress Note ---
Date of Encounter: 07/03/17 Time of Encounter: 12:10 - Assessment and plan (1) GI bleed Current Visit: Yes Status: Acute Assessment and plan: EGD 06/30 was unremarkable Continue cycle H&H s/p 1 unit PRBC (06/29/17) Colonoscopy showed mass, surgery consulted Qualifiers: GI bleed type/associated pathology: melena Qualified Code(s): K92.1 - Melena (2) Symptomatic anemia Current Visit: Yes Status: Acute (3) DM2 (diabetes mellitus, type 2) Current Visit: Yes Status: Chronic Assessment and plan: Controlled. Goal blood glucose levels 140-180 Do not continue metformin on discharge (family mentioned poor GI side effects and goals of care) Qualifiers: Diabetes mellitus halfway insulin use: without manager intermediate use Diabetes mellitus complication status: without complication Qualified Code(s): E11.9 - Type 2 diabetes mellitus without complications (4) Dementia Current Visit: Yes Status: Chronic Assessment and plan: Patient lives at home with family, able to ambulate at home Qualifiers: Dementia type: Alzheimer's disease Alzheimer's disease onset: unspecified onset Dementia behavioral disturbance: without behavioral disturbance Qualified Code(s): G30.9 - Alzheimer's disease, unspecified; F02.80 - Dementia in other diseases classified elsewhere without behavioral disturbance; F02.80 - Dementia in other diseases classified elsewhere without behavioral disturbance; F02.80 - Dementia in other diseases classified elsewhere without behavioral disturbance (5) HTN (hypertension) Current Visit: Yes Status: Chronic Qualifiers: Hypertension type: essential hypertension Qualified Code(s): I10 - Essential (primary) hypertension - Time Spent With Patient Total time spent is greater than 50% in coordination of care (as documented) at patient's floor/unit and/or counseling patient: - Subjective Interval history: No complaints, no acute events. Patient with history of dementia, congestive heart failure, high cholesterol, hypertension, CAD has a PTCA of LAD in the past, iron deficiency anemia and diabetes, patient had an outpatient lab drawn which came back hemoglobin is 7.6 and the patient was asked to come to the emergency room for further evaluation family has also noted black stool. Has had increased shortness of breath and fatigue In emergency room here hemoglobin was 7.5 with a low MCV. EGD done 06/30 showed only a small hiatal hernia. - Constitutional Vitals: Temp Pulse Resp BP Pulse Ox 99.2 F 71 16 101/61 96 07/02/17 10:57 07/02/17 10:57 07/02/17 10:57 07/02/17 10:57 07/02/17 10:57 General appearance: Present: A&O X 1, mild distress, pleasant, obese Exam: - Head Head exam: Present: atraumatic, normocephalic - Eye Eye exam: Present: PERRL, conjuntiva pink, sclera anicteric Pupils: Present: PERRL - Neck Neck exam general surgery: Present: supple, trachea midline. Absent: lymphadenopathy - Respiratory Respiratory exam: Present: CTAB. Absent: accessory muscle use, rales, rhonchi, wheezes - Cardiovascular Cardiovascular exam: Present: RRR, +S1, +S2. Absent: diastolic murmur, gallop, rubs, systolic murmur - GI/Abdominal GI/Abdominal exam: Present: normal bowel sounds, soft, no peritoneal signs. Absent: distended, tenderness - Extremities Exam Extremities exam: Present: warm, radial pulses palpable and symmetrical. Absent : calf tenderness, cyanotic, pedal edema - Neurological Exam Neurological exam: Present: CN II-XII intact, oriented X3, no focal deficits. Absent: pronater drift, facial droop, speech deficit - Skin Skin exam: Present: dry, intact Internal Medicine: Result - Labs CBC & Chem 7: 07/02/17 05:38 07/02/17 05:38 Labs: Short CBC 07/02/17 Range/Units 05:38 WBC 9.8 (4.3-11.1) K/mcL Hgb 9.2 L (11.5-15.4) g/dL Hct 31.5 L (35.3-44.9) % Plt Count 275 (140-400) K/mcL Neutrophils # 8.1 (1.6-8.9) K/mcL BMP 07/02/17 05:38 Sodium 138 Potassium 4.1 Chloride 112 H Carbon Dioxide 23 BUN 16 Creatinine 0.63 Glucose 136 H Calcium 8.3 L - ABG Interpretation ABG results: PT/INR, D-dimer PT 10.8 Seconds (9.4-12.1) 06/29/17 16:42 - VTE Documentation of Mechanical Device: Intermittent pneumatic compression device Consult Discharge Plan - Plan Referrals: Yovanny Parker MD [Primary Care Provider] - 07/11/17 10:15 am
[2017-07-02] MEDS: Lidocaine Viscous Oral Soln 15 ML SOLUTION MM SCH ×3 (13:29→21:15)
--- NOTE | 2017-07-02 15:51 | General Surgery Consult Note ---
Date of Encounter: 07/02/17 Time of Encounter: 15:38 History of Present Illness Consult date: 07/02/17 Requesting physician: Yani Staton History of present illness: 82-year-old, severely demented patient admitted for further evaluation and treatment anemia. The patient apparently had recent outpatient lab draw showing hemoglobin of 7.6 prompting the PCP to instruct family to transport the patient to the emergency department for further evaluation. The family describes recent melena, increased shortness of breath and fatigue. Medical history is notable for severe dementia/Alzheimer's; diabetes, hypertension, CHF , hyperlipidemia and prior myocardial infarction 2. There is also an unspecified history of anxiety and depression. The patient was referred to gastroenterology for evaluation of the patient's melena. EGD and colonoscopy were completed. EGD demonstrated a small hiatal hernia and a diverticulum in the second portion of the duodenum but otherwise no significant findings. Colonoscopy completed last evening demonstrated an infiltrative nonobstructing mass in the descending colon/hepatic flexure. Multiple polyps were identified in the descending colon. I was summoned to Endoscopy to discuss the findings with Dr Garcia. 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 Biopsies were obtained and those results are still pending. I requested in the ink tattoo be placed in the distal most polyp to identify the extent of dissection should surgery be selected by family. An extended conversation was completed at the patient's bedside. The patient is severely demented and did not participate in this discussion. Multiple family members (including daughters, son, and granddaughter) participated in the discussion. The patient's dementia was discussed in detail as were the endoscopic findings. The patient's advanced age, dementia and medical history were reviewed in detail with the family. These factors increase the patient's risk of any surgery. The patient's dementia may significantly impact the patient's recovery and postoperative care. Treatment options include comfort care versus open extended right colectomy. Before any surgery is scheduled , CT of the abdomen and pelvis with IV contrast is recommended. If the family chooses to defer surgery in favor of palliative or comfort care, the CT abdomen and pelvis is not needed. This was an extended, approx 45 minute encounter with the patient 's family. I attempted to answer their questions. The family was encouraged to discuss this among themselves with a treatment plan /decision to be made in the next few days. We will await the endoscopic biopsy results. A CEA will also be obtained. I plan to revisit these issues with family in the a.m. Palliative Care / Hospice consultation should be considered. Past Med Surg Social Fam HX - Past Medical History Medical history: CHF, dementia, diabetes, hyperlipidemia, hypertension, myocardial infarction, other Psychiatric history: anxiety, depression - Past Surgical History Surgical History: angioplasty/stent, hysterectomy, other - Social History Smoking Status: Never smoker Smokeless Tobacco Status: No Alcohol use: none Drug use: none Medications and Allergies Aripiprazole [Abilify] 5 mg PO DAILY 10/02/15 [History] Aspirin [Lo-Dose Aspirin EC] 81 mg PO DAILY 10/02/15 [History] Atorvastatin Calcium [Lipitor] 80 mg PO DAILY 10/02/15 [History] Donepezil [Aricept] 10 mg PO HS 10/02/15 [History] Ferrous Sulfate [Iron] 325 mg PO DAILY 10/02/15 [History] Memantine HCl [Namenda Xr] 28 mg PO DAILY 10/02/15 [History] Metoprolol XL (24 HR) Succ [Toprol Xl] 25 mg PO DAILY 10/02/15 [History] Nitroglycerin [Nitrostat] 0.4 mg SL PRN PRN 10/02/15 [History] Omeprazole [PriLOSEC] 20 mg PO DAILY 10/02/15 [History] Sertraline [Zoloft] 150 mg PO DAILY 10/02/15 [History] metFORMIN [Glucophage] 500 mg PO BIDWM 10/02/15 [History] Ascorbate Calcium [Vitamin C] 500 mg PO DAILY 06/29/16 [History] Clopidogrel [Plavix] 75 mg PO DAILY tablet 06/30/16 [Rx] Isosorbide MONOnitrate (24 HR) [Imdur] 30 mg PO DAILY 06/30/17 [History] Lisinopril [Zestril] 5 mg PO DAILY 06/30/17 [History] 3 Allergy/AdvReac Type Severity Reaction Status Date / Time Sulfa (Sulfonamide Allergy Rash Verified 06/28/16 23:54 Antibiotics) Review of Systems All systems PM: The remainder of the systems were reviewed and are negative General Surgery Exam Initial Vital Signs Temp Pulse Resp BP Pulse Ox 98.3 F 69 16 133/57 100 06/29/17 16:03 06/29/17 16:03 06/29/17 16:03 06/29/17 16:03 06/29/17 16:03 Exam Initial Vital Signs Temp Pulse Resp BP Pulse Ox 98.3 F 69 16 133/57 100 06/29/17 16:03 06/29/17 16:03 06/29/17 16:03 06/29/17 16:03 06/29/17 16:03 Results - Labs 07/02/17 05:38 07/02/17 05:38 Abnormal lab results Hgb 9.2 g/dL (11.5-15.4) L 07/02/17 05:38 Hct 31.5 % (35.3-44.9) L 07/02/17 05:38 MCV 74.5 fL (83.0-100.0) L 07/02/17 05:38 MCH 21.7 pg (28.0-33.3) L 07/02/17 05:38 MCHC 29.2 g/dL (31.6-35.5) L 07/02/17 05:38 RDW 19.9 % (11.5-14.5) H 07/02/17 05:38 Nucleated RBCs/100 WBC 0.6 /100 WBC (0) H 07/01/17 05:46 Hypochromasia Present (Not Present) A 07/02/17 05:38 Poikilocytosis 1+ (Not Present) A 06/29/17 16:42 Anisocytosis 1+ (Not Present) A 06/29/17 16:42 Microcytosis Present (Not Present) A 06/29/17 16:42 APTT 25.4 Seconds (26.0-36.0) L 06/29/17 16:42 Chloride 112 mEq/L (98-107) H 07/02/17 05:38 Glucose 136 mg/dL (70-105) H 07/02/17 05:38 POC Glucose 151 mg/dL (70-99) H 07/01/17 16:16 Hemoglobin A1c 8.2 % (-5.6) H 06/30/17 04:38 Calcium 8.3 mg/dL (8.6-10.3) L 07/02/17 05:38 AST 11 Units/L (13-39) L 06/30/17 04:38 Serum Total Protein 6.1 g/dL (6.4-8.9) L 06/30/17 04:38 Albumin 3.4 g/dL (3.5-5.7) L 06/30/17 04:38 Diabetes panel 07/02/17 Range/Units 05:38 Sodium 138 (136-145) mEq/L Potassium 4.1 (3.5-5.1) mEq/L Chloride 112 H (98-107) mEq/L Carbon Dioxide 23 (23-29) mEq/L BUN 16 (8-23) mg/dL Creatinine 0.63 (0.60-1.20) mg/dL Glucose 136 H (70-105) mg/dL Calcium 8.3 L (8.6-10.3) mg/dL Calcium panel 07/02/17 Range/Units 05:38 Calcium 8.3 L (8.6-10.3) mg/dL Pituitary panel 07/02/17 Range/Units 05:38 Sodium 138 (136-145) mEq/L Potassium 4.1 (3.5-5.1) mEq/L Chloride 112 H (98-107) mEq/L Carbon Dioxide 23 (23-29) mEq/L BUN 16 (8-23) mg/dL Creatinine 0.63 (0.60-1.20) mg/dL Glucose 136 H (70-105) mg/dL Calcium 8.3 L (8.6-10.3) mg/dL Adrenal panel 07/02/17 Range/Units 05:38 Sodium 138 (136-145) mEq/L Potassium 4.1 (3.5-5.1) mEq/L Chloride 112 H (98-107) mEq/L Carbon Dioxide 23 (23-29) mEq/L BUN 16 (8-23) mg/dL Creatinine 0.63 (0.60-1.20) mg/dL Glucose 136 H (70-105) mg/dL Calcium 8.3 L (8.6-10.3) mg/dL All other labs normal. Consult Discharge Plan - Plan Referrals: Yovanny Parker MD [Primary Care Provider] - 07/11/17 10:15 am
[2017-07-03] MEDS: Pantoprazole 40 MG VIAL IVP SCH (05:42)
[2017-07-03] MEDS: ARIPiprazole 5 MG TABLET PO SCH (09:09)
[2017-07-03] MEDS: Isosorbide MONOnitrate (24 HR) 30 MG TAB.ER.24H PO SCH (09:10)
[2017-07-03] MEDS: Ascorbic Acid 500 MG TABLET PO SCH (09:10)
[2017-07-03] MEDS: Metoprolol XL (24 HR) Succ 25 MG TAB.ER.24H PO SCH (09:10)
--- NOTE | 2017-07-03 09:40 | Internal Med Progress Note ---
Date of Encounter: 07/03/17 Time of Encounter: 09:38 - Assessment and plan (1) GI bleed Current Visit: Yes Status: Acute Assessment and plan: EGD 06/30 was unremarkable Continue cycle H&H s/p 1 unit PRBC (06/29/17) Colonoscopy showed mass, surgery consulted Findings of mass, family decided against surgical intervention. Would like comfort measures. Palliative service consulted. Likely home with hospice. Continue iron supplementation Qualifiers: GI bleed type/associated pathology: melena Qualified Code(s): K92.1 - Melena (2) Symptomatic anemia Current Visit: Yes Status: Acute (3) DM2 (diabetes mellitus, type 2) Current Visit: Yes Status: Chronic Assessment and plan: Controlled. Goal blood glucose levels 140-180 Do not continue metformin on discharge (family mentioned poor GI side effects and goals of care) Qualifiers: Diabetes mellitus fpc insulin use: without fpc use Diabetes mellitus complication status: without complication Qualified Code(s): E11.9 - Type 2 diabetes mellitus without complications (4) Dementia Current Visit: Yes Status: Chronic Assessment and plan: Patient lives at home with family, able to ambulate at home Qualifiers: Dementia type: Alzheimer's disease Alzheimer's disease onset: unspecified onset Dementia behavioral disturbance: without behavioral disturbance Qualified Code(s): G30.9 - Alzheimer's disease, unspecified; F02.80 - Dementia in other diseases classified elsewhere without behavioral disturbance; F02.80 - Dementia in other diseases classified elsewhere without behavioral disturbance; F02.80 - Dementia in other diseases classified elsewhere without behavioral disturbance (5) HTN (hypertension) Current Visit: Yes Status: Chronic Qualifiers: Hypertension type: essential hypertension Qualified Code(s): I10 - Essential (primary) hypertension (6) Pneumonia Current Visit: Yes Status: Acute Assessment and plan: Clinically appears as patient having pneumonia with cough, sputum, and rales on exam. Will start Levaquin and Doxycyclin course. Qualifiers: Pneumonia type: due to unspecified organism Laterality: unspecified laterality Lung location: unspecified part of lung Qualified Code(s): J18.9 - Pneumonia, unspecified organism - Time Spent With Patient Total time spent is greater than 50% in coordination of care (as documented) at patient's floor/unit and/or counseling patient: - Subjective Interval history: No complaints, no acute events. Patient with history of dementia, congestive heart failure, high cholesterol, hypertension, CAD has a PTCA of LAD in the past, iron deficiency anemia and diabetes, patient had an outpatient lab drawn which came back hemoglobin is 7.6 and the patient was asked to come to the emergency room for further evaluation family has also noted black stool. Has had increased shortness of breath and fatigue In emergency room here hemoglobin was 7.5 with a low MCV. EGD done 06/30 showed only a small hiatal hernia. Colonoscopy showed mass. Family yesterday discussed situation with General Surgery and decided against aggressive measures. Patient has no complaints. Overnight she had slight elevation of temperature of 100.0, but no fever. She has having cough per family. - Constitutional Vitals: Temp Pulse Resp BP Pulse Ox 100.0 F H 70 16 119/71 92 07/03/17 07:32 07/03/17 07:32 07/03/17 07:32 07/03/17 07:32 07/03/17 07:32 General appearance: Present: A&O X 1, mild distress, pleasant, obese Exam: - Head Head exam: Present: atraumatic, normocephalic - Eye Eye exam: Present: PERRL, conjuntiva pink, sclera anicteric Pupils: Present: PERRL - Neck Neck exam general surgery: Present: supple, trachea midline. Absent: lymphadenopathy - Respiratory Respiratory exam: Present: CTAB. Absent: accessory muscle use + rales both lower lobes. - Cardiovascular Cardiovascular exam: Present: RRR, +S1, +S2. Absent: diastolic murmur, gallop, rubs, systolic murmur - GI/Abdominal GI/Abdominal exam: Present: normal bowel sounds, soft, no peritoneal signs. Absent: distended, tenderness - Extremities Exam Extremities exam: Present: warm, radial pulses palpable and symmetrical. Absent : calf tenderness, cyanotic, pedal edema - Neurological Exam Neurological exam: Present: CN II-XII intact, oriented X3, no focal deficits. Absent: pronater drift, facial droop, speech deficit - Skin Skin exam: Present: dry, intact Internal Medicine: Result - Labs CBC & Chem 7: 07/02/17 05:38 07/02/17 05:38 - ABG Interpretation ABG results: PT/INR, D-dimer PT 10.8 Seconds (9.4-12.1) 06/29/17 16:42 - VTE Documentation of Mechanical Device: Intermittent pneumatic compression device Consult Discharge Plan - Plan Referrals: Yovanny Parker MD [Primary Care Provider] - 07/11/17 10:15 am
[2017-07-03] MEDS: Lidocaine Viscous Oral Soln 15 ML SOLUTION MM SCH ×2 (09:48→13:31)
[2017-07-03] MEDS ORDERED: Doxycycline 100 MG CAPSULE PO SCH ×2 (10:34→21:00)
[2017-07-03 11:12] VITALS: BP 125/63
--- NOTE | 2017-07-03 11:51 | Palliative - Consult Note ---
Date of Encounter: 07/03/17 Time of Encounter: 10:15 - Assessment and Plan (1) Symptomatic anemia Current Visit: Yes Status: Acute Assessment and plan: Hgb 9.2. Denies dypsnea, pain, or weakness. Feels much better today. Patient to be discharged home with hospice. (2) GI bleed Current Visit: Yes Status: Acute Assessment and plan: Hgb 9.2. Patient is bringing patient home with [facility]. Qualifiers: GI bleed type/associated pathology: melena Qualified Code(s): K92.1 - Melena (3) Dementia Current Visit: Yes Status: Chronic Assessment and plan: Patient is a chronic dementia patient. Continues to be confused to time and place. Family will continue to care for patient as prior to admission. Qualifiers: Dementia type: Alzheimer's disease Alzheimer's disease onset: unspecified onset Dementia behavioral disturbance: without behavioral disturbance Qualified Code(s): G30.9 - Alzheimer's disease, unspecified; F02.80 - Dementia in other diseases classified elsewhere without behavioral disturbance; F02.80 - Dementia in other diseases classified elsewhere without behavioral disturbance; F02.80 - Dementia in other diseases classified elsewhere without behavioral disturbance (4) Goals of care, counseling/discussion Current Visit: Yes Status: Acute Assessment and plan: Met with Ms. Santana and her four daughters and one son in law to discuss goals of care at discharge. Family understands poor prognosis with surgery and wishes to not pursuit that route. Family remained split on decisions; however, all have the agreement of meeting the needs of the patient. Met with Radha initially and discussed goals of care. Radha identified that family already worked out schedule to care for patient at home; however, concern was presented should patient have to be placed due to debility. Explained Hospice has SW that can assist with placement into ECF if needed at a later date. 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 Melita explained that she has had two great experiences with [facility]. Met with Berta whom expresses concern over patient having repeat dropping of blood levels and requiring additional blood work and transfusions. Explained most hospice agencies would not consider this type of care; verbalized understanding. Spoke with [facility] and they would accept patient and would provide occassional blood transfusions for comfort; family acknowledged that would be a "God-send" and wishes to pursuit [facility]. Met with Fabi who concurred that patient's wishes would be to be home and not miserable in the hospice. Discussed CODE STATUS with family members several times and family all in agreement with DNR CC. CODE STATUS changed to DNR CC. Patient is sitting up in chair and verbalizes that she understands everything and would speak up if she didn't like something. Patient's only expressed wish was to go home with her daughters, "wherever they go I am going." Family wishes for hospice to provide hospital bed, oxygen, over the bed table, overlay for mattress for bed, rollator walker, and adult wipes/washcloths. Family has expressed the goal to bring patient home today in a personal vehicle. Family expressed concern over patient needing medication for comfort; explained Hospice care medication patient. Ordered prescriptions for Ativan, Tramadol, and Zofran as needed. Met with Patient's nurse and updated plan of care. (5) Colonic mass Current Visit: Yes Status: Acute Assessment and plan: Patient being discharged home with [facility]. Likely neoplastic colonic mass. Palliative-CN HPI - Data of Consult Patient: new to practice Consult date: 07/02/17 Requesting Physician: Mesfin Herndon MD Primary Care Provider: Yovanny Parker MD - Consult Narrative Palliative Care/Comfort Measures: Palliative care Reason for consult: Home with hospice; goals of care History of present illness: Ms. Santana is a 82 year old female arrived to [place] on 06/29/17 with outpatient lab work showing hgb 7.6, with instructions to transport patient to ER for evaluation and treatment of anemia. Patient has PMH of dementia, DM, HTN , CHF, hyperlipidemia, and prior hx of NV X2. During ER workup, EGD performed to show a small hiatal hernia and diverticulum in the second portion of the duodenum. Colonoscopy completed on 07/01/17 showed an infiltrative nonobstructive mass in the descending colon/hepative flexure along with multiple polyps in the descending colon. It was noted by Dr. Garcia and Dr. Davis that the infiltrative nonobstructing mass in the descending colon/ hepatic flexture is most likely neoplastic. Dr. Davis met with family 07/02/17 and had extended conversation presenting treatment options being an open extended right colectomy versus comfort care. Palliative care consult completed for goals of care discussion and evaluation for home with hospice. Patient is alert and oriented to name only; disoriented to time and place. Patient denies pain, nausea, anxiety, difficulty voiding or having bowel movements. Patient is ambulatory in room with minimal assistance. CC: Mesfin Herndon MD Past Med Surg Social Fam HX - Past Medical History Medical history: CHF, dementia, diabetes, hyperlipidemia, hypertension, myocardial infarction, other Psychiatric history: anxiety, depression - Past Surgical History Surgical History: angioplasty/stent, hysterectomy, other - Social History Smoking Status: Never smoker Smokeless Tobacco Status: No Alcohol use: none Drug use: none Medications and Allergies Aripiprazole [Abilify] 5 mg PO DAILY 10/02/15 [History] Aspirin [Lo-Dose Aspirin EC] 81 mg PO DAILY 10/02/15 [History] Atorvastatin Calcium [Lipitor] 80 mg PO DAILY 10/02/15 [History] Donepezil [Aricept] 10 mg PO HS 10/02/15 [History] Ferrous Sulfate [Iron] 325 mg PO DAILY 10/02/15 [History] Memantine HCl [Namenda Xr] 28 mg PO DAILY 10/02/15 [History] Metoprolol XL (24 HR) Succ [Toprol Xl] 25 mg PO DAILY 10/02/15 [History] Nitroglycerin [Nitrostat] 0.4 mg SL PRN PRN 10/02/15 [History] Omeprazole [PriLOSEC] 20 mg PO DAILY 10/02/15 [History] Sertraline [Zoloft] 150 mg PO DAILY 10/02/15 [History] metFORMIN [Glucophage] 500 mg PO BIDWM 10/02/15 [History] Ascorbate Calcium [Vitamin C] 500 mg PO DAILY 06/29/16 [History] Clopidogrel [Plavix] 75 mg PO DAILY tablet 06/30/16 [Rx] Isosorbide MONOnitrate (24 HR) [Imdur] 30 mg PO DAILY 06/30/17 [History] Lisinopril [Zestril] 5 mg PO DAILY 06/30/17 [History] LORazepam [Ativan] 0.5 mg PO Q4HR PRN 7 Days #30 tablet 07/03/17 [Rx] Ondansetron ODT [Zofran ODT] 4 mg SL Q6HR PRN 7 Days #28 tab.rapdis 07/03/17 [Rx ] Tramadol HCl [Ultram] 50 mg PO QID PRN 7 Days #28 tab 07/03/17 [Rx] 3 Allergy/AdvReac Type Severity Reaction Status Date / Time Sulfa (Sulfonamide Allergy Rash Verified 06/28/16 23:54 Antibiotics) - Constitutional Constitutional ROS PAL: fatigue, lethargy, no decreased appetite Additional comments: When hgb is low. - EENT Ears, nose, mouth, throat: no dysphagia - Cardiovascular Cardiovascular ROS: no dyspnea on exertion, no pedal edema - Respiratory Respiratory: cough - Gastrointestinal Gastrointestinal: no change in bowel habits - Genitourinary Palliative ROS female: no difficulty voiding, no urinary incontinence - Integumentary ROS Integumentary: dry skin - Psychiatric Psychiatric general PM: no anxiety, no behavioral changes Palliative Care-Exam - Constitutional Vitals: Temp Pulse Resp BP Pulse Ox 99.3 F 80 18 125/63 98 07/03/17 11:11 07/03/17 11:11 07/03/17 11:11 07/03/17 11:11 07/03/17 11:11 Internal Medicine - CN: Reslt - Labs CBC & Chem 7: 07/02/17 05:38 07/02/17 05:38 - ABG Interpretation ABG results: PT/INR, D-dimer PT 10.8 Seconds (9.4-12.1) 06/29/17 16:42 Consult Discharge Plan - Plan Referrals: Yovanny Parker MD [Primary Care Provider] - 07/11/17 10:15 am Palliative Quality Palliative Quality: Screen for Code Status: Yes, Screen for Goals of Care: Yes, Screen for Pain: Yes, If Pain Regimen Started, Initiate Bowel Regimen: NA, Screen for Nausea/Vomitting: Yes
--- NOTE | 2017-07-03 14:59 | Discharge Summary ---
- NOTES TO OUTPATIENT PROVIDER Notes to Outpatient Provider: Home with hospice Orders not resulted at time of discharge: Pending orders 07/01/17 15:28 Surgical Pathology [PTH] Routine Date of Encounter: 07/03/17 Time of Encounter: 14:57 - Discharge Diagnosis (1) GI bleed Priority: Primary Status: Acute Qualifiers: GI bleed type/associated pathology: melena Qualified Code(s): K92.1 - Melena (2) Symptomatic anemia Priority: Secondary Status: Acute (3) DM2 (diabetes mellitus, type 2) Priority: Secondary Status: Chronic Qualifiers: Diabetes mellitus terminal carman insulin use: without terminal carman use Diabetes mellitus complication status: without complication Qualified Code(s): E11.9 - Type 2 diabetes mellitus without complications (4) Dementia Priority: Secondary Status: Chronic Qualifiers: Dementia type: Alzheimer's disease Alzheimer's disease onset: unspecified onset Dementia behavioral disturbance: without behavioral disturbance Qualified Code(s): G30.9 - Alzheimer's disease, unspecified; F02.80 - Dementia in other diseases classified elsewhere without behavioral disturbance; F02.80 - Dementia in other diseases classified elsewhere without behavioral disturbance; F02.80 - Dementia in other diseases classified elsewhere without behavioral disturbance (5) HTN (hypertension) Priority: Secondary Status: Chronic Qualifiers: Hypertension type: essential hypertension Qualified Code(s): I10 - Essential (primary) hypertension (6) Pneumonia Priority: Secondary Status: Acute Assessment and Plan: Clinically appears as patient having pneumonia with cough, sputum, and rales on exam. Will start Levaquin and Doxycyclin course. Qualifiers: Pneumonia type: due to unspecified organism Laterality: unspecified laterality Lung location: unspecified part of lung Qualified Code(s): J18.9 - Pneumonia, unspecified organism (7) Malignant tumor of hepatic flexure Priority: Secondary Status: Acute Hospital course: Patient with history of dementia, congestive heart failure, high cholesterol, hypertension, CAD has a PTCA of LAD in the past, iron deficiency anemia and diabetes, patient had an outpatient lab drawn which came back hemoglobin is 7.6 and the patient was asked to come to the emergency room for further evaluation family has also noted black stool. Has had increased shortness of breath and fatigue In emergency room here hemoglobin was 7.5 with a low MCV She was hemodynamically stable on admission. She was given one unit PRBC. GI was consulted and patient underwent EGD that was negative. A colonoscopy was done that showed malignant mass in hepatic flexure. General Surgery was consulted. Patient has poor prognosis based on findings. Discussion took place with family and they did not want surgery for patient or any further aggressive measures. Palliative service was consulted and patient had arrangement done for home with hospice. [facility] has evaluated patient and arrangements are being made. Patient hemoglobin has remained stable. She did have faint shortness of breath and had rales on lung exam. There was concern for developing pneumonia though patient did not have any fever, cough, or sputum. Family did not want any imaging or testing workup done and so she was started on emperic antibiotic therapy. She was discharged home with hospice in stable condition. - Time Spent with Patient Total time spent providing and/or coordinating discharge services: - Discharge Medications Prescriptions: LORazepam [Ativan] 0.5 mg PO Q4HR PRN 7 Days #30 tablet PRN Reason: Anxiety Ondansetron ODT [Zofran ODT] 4 mg SL Q6HR PRN 7 Days #28 tab.rapdis PRN Reason: nausea/vomitting Doxycycline 100 mg PO BID #14 capsule Tramadol HCl [Ultram] 50 mg PO QID PRN 7 Days #28 tab PRN Reason: Pain Home Medications: Aripiprazole [Abilify] 5 mg PO DAILY 10/02/15 [History] Atorvastatin Calcium [Lipitor] 80 mg PO DAILY 10/02/15 [History] Donepezil [Aricept] 10 mg PO HS 10/02/15 [History] Ferrous Sulfate [Iron] 325 mg PO DAILY 10/02/15 [History] Memantine HCl [Namenda Xr] 28 mg PO DAILY 10/02/15 [History] Metoprolol XL (24 HR) Succ [Toprol Xl] 25 mg PO DAILY 10/02/15 [History] Nitroglycerin [Nitrostat] 0.4 mg SL PRN PRN 10/02/15 [History] Omeprazole [PriLOSEC] 20 mg PO DAILY 10/02/15 [History] Sertraline [Zoloft] 150 mg PO DAILY 10/02/15 [History] Ascorbate Calcium [Vitamin C] 500 mg PO DAILY 06/29/16 [History] Isosorbide MONOnitrate (24 HR) [Imdur] 30 mg PO DAILY 06/30/17 [History] Lisinopril [Zestril] 5 mg PO DAILY 06/30/17 [History] Doxycycline 100 mg PO BID #14 capsule 07/03/17 [Rx] LORazepam [Ativan] 0.5 mg PO Q4HR PRN 7 Days #30 tablet 07/03/17 [Rx] Ondansetron ODT [Zofran ODT] 4 mg SL Q6HR PRN 7 Days #28 tab.rapdis 07/03/17 [Rx ] Tramadol HCl [Ultram] 50 mg PO QID PRN 7 Days #28 tab 07/03/17 [Rx] Allergies/Adverse Reactions: 3 Allergy/AdvReac Type Severity Reaction Status Date / Time Sulfa (Sulfonamide Allergy Rash Verified 06/28/16 23:54 Antibiotics) Date of admission: 06/29/17 20:52 Primary care physician: Yovanny Parker MD Consults: 06/29/17 20:57 Consult to Gastroenterology [CONS] Routine Consulting Provider: Gastroenterology Estela Reason for Consult: gi bleed Call Completed: No 07/02/17 12:30 Consult to Surgery [CONS] Routine Consulting Provider: Surgery [facility] Reason for Consult: GIB, colonoscopy results. Call Completed: Yes 07/02/17 18:45 Consult to Palliative Care [CONS] Routine Comment: Consulting Provider: Palliative Care Estela Reason for Consult: Home with hospice, goals of care Call Completed: No Discharging clinician: Yani Staton - Constitutional Vitals: Temp Pulse Resp BP Pulse Ox 99.3 F 80 18 125/63 98 07/03/17 11:11 07/03/17 11:11 07/03/17 11:11 07/03/17 11:11 07/03/17 11:11 General appearance: Present: A&O X 1, mild distress, pleasant, obese Exam: - Head Head exam: Present: atraumatic, normocephalic - Eye Eye exam: Present: PERRL, conjuntiva pink, sclera anicteric Pupils: Present: PERRL - Neck Neck exam general surgery: Present: supple, trachea midline. Absent: lymphadenopathy - Respiratory Respiratory exam: Present: CTAB. Absent: accessory muscle use + rales both lower lobes. - Cardiovascular Cardiovascular exam: Present: RRR, +S1, +S2. Absent: diastolic murmur, gallop, rubs, systolic murmur - GI/Abdominal GI/Abdominal exam: Present: normal bowel sounds, soft, no peritoneal signs. Absent: distended, tenderness - Extremities Exam Extremities exam: Present: warm, radial pulses palpable and symmetrical. Absent : calf tenderness, cyanotic, pedal edema - Neurological Exam Neurological exam: Present: CN II-XII intact, oriented X3, no focal deficits. Absent: pronater drift, facial droop, speech deficit - Skin Skin exam: Present: dry, intact - Patient Status Disposition: Hospice - Home Condition: Fair Functional capacity at discharge: independent ambulation Overall status at discharge: patient is progressing back to baseline - Discharge Instructions Follow Up With: Yovanny Parker MD [Primary Care Provider] - 07/11/17 10:15 am - Diet and Activity Activity: increase activity as tolerated Diet: diabetic diet - VTE Documentation of Mechanical Device: Intermittent pneumatic compression device
--- NOTE | 2017-07-03 15:25 | Physician Discharge Referral ---
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 For more information, call the [place] Tobacco Quit Line at 1-771-TDEC-NOW. - Diet/Nutrition Diet/Nutrition Orders: Cardiac, No Concentrated Sweets - Services Needed Home Care Orders: increase activity as tolerated. - Transfer Medications Prescriptions: LORazepam [Ativan] 0.5 mg PO Q4HR PRN 7 Days #30 tablet PRN Reason: Anxiety Ondansetron ODT [Zofran ODT] 4 mg SL Q6HR PRN 7 Days #28 tab.rapdis PRN Reason: nausea/vomitting Doxycycline 100 mg PO BID #14 capsule Levofloxacin [Levaquin] 750 mg PO DAILY #7 tablet Tramadol HCl [Ultram] 50 mg PO QID PRN 7 Days #28 tab PRN Reason: Pain Home Medications: Aripiprazole [Abilify] 5 mg PO DAILY 10/02/15 [History] Atorvastatin Calcium [Lipitor] 80 mg PO DAILY 10/02/15 [History] Donepezil [Aricept] 10 mg PO HS 10/02/15 [History] Ferrous Sulfate [Iron] 325 mg PO DAILY 10/02/15 [History] Memantine HCl [Namenda Xr] 28 mg PO DAILY 10/02/15 [History] Metoprolol XL (24 HR) Succ [Toprol Xl] 25 mg PO DAILY 10/02/15 [History] Nitroglycerin [Nitrostat] 0.4 mg SL PRN PRN 10/02/15 [History] Omeprazole [PriLOSEC] 20 mg PO DAILY 10/02/15 [History] Sertraline [Zoloft] 150 mg PO DAILY 10/02/15 [History] Ascorbate Calcium [Vitamin C] 500 mg PO DAILY 06/29/16 [History] Isosorbide MONOnitrate (24 HR) [Imdur] 30 mg PO DAILY 06/30/17 [History] Lisinopril [Zestril] 5 mg PO DAILY 06/30/17 [History] Doxycycline 100 mg PO BID #14 capsule 07/03/17 [Rx] LORazepam [Ativan] 0.5 mg PO Q4HR PRN 7 Days #30 tablet 07/03/17 [Rx] Levofloxacin [Levaquin] 750 mg PO DAILY #7 tablet 07/03/17 [Rx] Ondansetron ODT [Zofran ODT] 4 mg SL Q6HR PRN 7 Days #28 tab.rapdis 07/03/17 [Rx ] Tramadol HCl [Ultram] 50 mg PO QID PRN 7 Days #28 tab 07/03/17 [Rx] Allergies/Adverse Reactions: 3 Allergy/AdvReac Type Severity Reaction Status Date / Time Sulfa (Sulfonamide Allergy Rash Verified 06/28/16 23:54 Antibiotics) Certification: Further, I certify that my clinical findings support that this patient is homebound (i.e. absences from home require considerable and taxing effort and are for medical reasons or gnosticist services or infrequently or short duration when for other reasons) because: Homebound Reason: Patient requires assistance of a person or device to safely leave home, Severity of cardiac or pulmonary status limits activity tolerance Attestation: My signature below is to certify that this patient is under my care and that I, or nurse practitioner, or a physician's payroll administrative assistant working with me, has a face-to -face encounter with this patient.
--- NOTE | 2017-07-03 16:32 | Electrocardiograph Report ---
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
== END 2017-07-03 16:53 | disposition hospice, home (50) | DRG 374 ==
LOC: EMEROO 15:54 → 3ANU 15:54 → SUATTDRO 20:52 → 3ANU 21:35
PROVIDERS: ADMIT Student in an Organized Health Care Education/Training Program; ATTEND Hospitalist
PROC: ENDOEBX (2017-06-30 13:15)